=== PATIENT | female | born 1975 | race Caucasian/White ===

== ENCOUNTER 2017-11-04 10:35 | Emergency (ER) | payer OTHER, SELFPAY ==
[2017-11-04 10:42] VITALS: BP 130/71; PULSE 114; RESP 18; TEMP 37.3; O2SAT 98; BMI 24.5
--- NOTE | 2017-11-04 11:28 | HMH.EDGENADL ---
ED Disposition Clinical Impression: Influenza Disposition: Home, Self-Care Condition on Discharge: Fair Additional Instructions: 1- rest. 2- plenty of fluids. 3- alternate tylenol and motrin. 4- start tamiflu. 5- see pcp in am for a recheck. 6- return if needed for a recheck if not better. Prescriptions: Oseltamivir Phosphate [Tamiflu 75mg Capsule] 75 mg PO BID #10 cap Referrals: Angie Matt [Primary Care Provider] - - Critical Care Critical Care Time: No Attestation: On 11/04/17, the high probability of a clinically significant, sudden or life threatening deterioration of the following system(s) required my full and direct attention, intervention and personal management. The time I documented below is in addition to time spent performing reported procedures but includes the following listed in this critical care notation. Medical Decision Making - Medical Records Medical records reviewed: Yes: I reviewed the patient's medical records. Vital Signs: 11/04/17 10:42 Temperature 99.1 F Temperature Source Oral Pulse Rate [Right Brachial] 114 H Respiratory Rate 18 Blood Pressure [Right Arm] 130/71 Blood Pressure Mean [Right Arm] 90 Blood Pressure Source [Right Arm] Automatic Cuff Blood Pressure Position [Right Arm] Sitting 02 Sat by Pulse Oximetry 98 Oxygen Delivery Method Room Air - Lab Data Lab Results 11/04/17 10:40: Influenza Type A Ag Negative, Influenza Type B Ag Positive A Orders (Tests/Meds): ORDERS Category Date Time Status BNP [B-Type Natriuretic Peptide] Stat Lab 11/04/17 11:19 Ordered D-Dimer Stat Lab 11/04/17 11:19 Ordered - Narayan Inquiry Pt receiving controlled substance: No Narayan was queried for this patient: No Medical Decision Making Narrative: The patient refused her chest x-ray and she said I am not hurting I just want to be checked for the flu. She denied having dysuria or hematuria or flank pain. Urine analysis. Wanted to be checked for the flu. She tested flu B positive . General Adult HPI - General Chief complaint: Fever Stated complaint: achey,cough Mode of Arrival: Ambulatory Limitations: No Limitations Description of Symptoms (Recalled from ER Triage Doc. by RN): flu like symptoms - History of Present Illness HPI narrative: 42 years old white female with no past medical history non-smoker. She developed fever body aches for 2 days duration. She denies productive cough shortness of breath palpitations chest pain nausea vomiting. She denies having sore throat earache . she has three children and wants to be tested for the flu. Onset (ago): day(s) (2 days .) Radiation: non-radiation Severity: moderate Quality: aching, dull Consistency: constant Relieving factors: medication Exacerbating factors: none Associated symptoms: fever/chills, malaise Treatments prior to arrival: none - Related Data Previous Rx's Medication Instructions Recorded Oseltamivir Phosphate [Tamiflu 75 mg PO BID #10 cap 11/04/17 75mg Capsule] Allergies Allergy/AdvReac Type Severity Reaction Status Date / Time Naproxen Allergy Mild I-ITCHING Uncoded 09/21/17 15:40 SULFA (sulfonamide) Allergy Mild I-HIVES Uncoded 09/21/17 15:40 [facility] History I have reviewed the patient's past medical history: Yes - *Social History Educational Level: Completed High School Smoking Status: Unknown if ever smoked Alcohol Intake: never - Psychiatric History Expresses thoughts of harming self/others: None Suicide Plan Description: No Plan ROS Obtained: Yes All systems reviewed & no additional complaints Physical Exam - General General appearance: alert, in no apparent distress - Head Head exam: atraumatic, normocephalic, normal inspection - Eye Eye exam: Present: normal appearance, PERRL, EOMI - ENT ENT exam: Present: normal exam, normal oropharynx, mucous membranes moist, TM's normal bilaterally, normal external ear exam -
--- NOTE | 2017-11-04 11:31 | ED_ITS ---
ED Disposition Clinical Impression: Influenza Disposition: Home, Self-Care Condition on Discharge: Fair Additional Instructions: 1- rest. 2- plenty of fluids. 3- alternate tylenol and motrin. 4- start tamiflu. 5- see pcp in am for a recheck. 6- return if needed for a recheck if not better. Prescriptions: Oseltamivir Phosphate [Tamiflu 75mg Capsule] 75 mg PO BID #10 cap Referrals: Angie Matt [Primary Care Provider] - - Critical Care Critical Care Time: No Attestation: On 11/04/17, the high probability of a clinically significant, sudden or life threatening deterioration of the following system(s) required my full and direct attention, intervention and personal management. The time I documented below is in addition to time spent performing reported procedures but includes the following listed in this critical care notation. Medical Decision Making - Medical Records Medical records reviewed: Yes: I reviewed the patient's medical records. Vital Signs: 11/04/17 10:42 Temperature 99.1 F Temperature Source Oral Pulse Rate [Right Brachial] 114 H Respiratory Rate 18 Blood Pressure [Right Arm] 130/71 Blood Pressure Mean [Right Arm] 90 Blood Pressure Source [Right Arm] Automatic Cuff Blood Pressure Position [Right Arm] Sitting 02 Sat by Pulse Oximetry 98 Oxygen Delivery Method Room Air - Lab Data Lab Results 11/04/17 10:40: Influenza Type A Ag Negative, Influenza Type B Ag Positive A Orders (Tests/Meds): ORDERS Category Date Time Status BNP [B-Type Natriuretic Peptide] Stat Lab 11/04/17 11:19 Ordered D-Dimer Stat Lab 11/04/17 11:19 Ordered - Narayan Inquiry Pt receiving controlled substance: No Narayan was queried for this patient: No Medical Decision Making Narrative: The patient refused her chest x-ray and she said I am not hurting I just want to be checked for the flu. She denied having dysuria or hematuria or flank pain. Urine analysis. Wanted to be checked for the flu. She tested flu B positive . General Adult HPI - General Chief complaint: Fever Stated complaint: achey,cough Mode of Arrival: Ambulatory Limitations: No Limitations Description of Symptoms (Recalled from ER Triage Doc. by RN): flu like symptoms - History of Present Illness HPI narrative: 42 years old white female with no past medical history non-smoker. She developed fever body aches for 2 days duration. She denies productive cough shortness of breath palpitations chest pain nausea vomiting. She denies having sore throat earache . she has three children and wants to be tested for the flu. Onset (ago): day(s) (2 days .) Radiation: non-radiation Severity: moderate Quality: aching, dull Consistency: constant Relieving factors: medication Exacerbating factors: none Associated symptoms: fever/chills, malaise Treatments prior to arrival: none - Related Data Previous Rx's Medication Instructions Recorded Oseltamivir Phosphate [Tamiflu 75 mg PO BID #10 cap 11/04/17 75mg Capsule] Allergies Allergy/AdvReac Type Severity Reaction Status Date / Time Naproxen Allergy Mild I-ITCHING Uncoded 09/21/17 15:40 SULFA (sulfonamide) Allergy Mild I-HIVES Uncoded 09/21/17 15:40 H History
[2017-11-04 11:53] VITALS: BP 119/64; PULSE 92; RESP 20; TEMP 36.6
--- NOTE | 2017-11-04 11:55 | PC.NURSE ---
PT REFUSED HER CHEST XRAY
== END 2017-11-04 11:53 | disposition home or self-care (01) ==
PROVIDERS: Emergency Provider Emergency Medicine; Family Provider Family Medicine; PCP Family Medicine
DX: J11.1 Influenza due to unidentified influenza virus with other respiratory manifestations (principal)
CPT/HCPCS: 87275; 87276; 99203; 99281

== ENCOUNTER 2017-11-05 12:26 | Emergency (ER) | payer OTHER, SELFPAY ==
[2017-11-05 12:44] VITALS: BP 113/68; PULSE 107; RESP 18; O2SAT 98; BMI 24.5
--- NOTE | 2017-11-05 12:53 | XR_ITS ---
XR chest 2V HISTORY: ITS.REASON: COUGH ORDERING PHYSICIAN: Luis Antonio Wharton MD PATIENT AGE: 42 years COMPARISON: None available FINDINGS: The cardiomediastinal silhouette and pulmonary vascularity are within normal limits. The lungs are clear without infiltrates, suspicious nodules, or pleural effusions. There is calcified granuloma in the right upper lobe. There is hyperinflation with blunting of the CP angles probably related to diaphragmatic eventration as opposed to pleural effusion. No acute bony abnormalities. IMPRESSION: Hyperinflation suggesting small airway disease such as asthma, bronchitis, or COPD
--- NOTE | 2017-11-05 13:16 | HMH.EDGENADL ---
ED Disposition Clinical Impression: Influenza B Disposition: Home, Self-Care Condition on Discharge: Good Instructions: DI for Influenza -- Adult, DI for Diarrhea and Traveler's Diarrhea -- Adult Additional Instructions: Continue current treatment. [id number] Imodium as needed for diarrhea. Drink plenty of fluids. Referrals: Angie Matt [Primary Care Provider] - - Critical Care Critical Care Time: No Attestation: On 11/05/17, the high probability of a clinically significant, sudden or life threatening deterioration of the following system(s) required my full and direct attention, intervention and personal management. The time I documented below is in addition to time spent performing reported procedures but includes the following listed in this critical care notation. Medical Decision Making Vital Signs: 11/05/17 12:44 Temperature Source Oral Pulse Rate [Right Brachial] 107 H Respiratory Rate 18 Blood Pressure [Right Arm] 113/68 Blood Pressure Mean [Right Arm] 83 Blood Pressure Source [Right Arm] Automatic Cuff Blood Pressure Position [Right Arm] Sitting 02 Sat by Pulse Oximetry 98 Oxygen Delivery Method Room Air Orders (Tests/Meds): ORDERS Category Date Time Status Chest XR 2 view (NOT portable) [XR chest 2V] Stat Exams 11/05/17 12:53 Taken - Radiology Data #1 Image(s): Chest Chest x-ray interpreted by Luis Antonio Wharton M.D. No infiltrate, pneumothorax, pleural effusion, or wide mediastinum. - Narayan Inquiry Pt receiving controlled substance: No General Adult HPI - General Chief complaint: PAIN Stated complaint: flu like symptoms cough Mode of Arrival: Ambulatory Limitations: No Limitations Description of Symptoms (Recalled from ER Triage Doc. by RN): DIAGNOSED WITH FLU YESTERDAY; PT STATES WAS TOLD TO COME BACK IF NO BETTER;PT REFUSED CHEST XRAY YESTERDAY. STARTED ON TAMIFLU. STATES HAS DIARRHEA. DISCUSSED SIDE EFFECTS OF TAMIFLU - History of Present Illness HPI narrative: The patient has been sick since Wednesday 5 days ago with flulike symptoms. She was seen here yesterday in the emergency room and had a positive test for influenza B. She was started on Tamiflu. She says she also now has diarrhea. She has a cough and rhinorrhea. She has a blister on her throat. Chest x-ray was ordered yesterday, but she declined, and has decided today that she wants a chest x-ray. - Related Data Previous Rx's Medication Instructions Recorded Oseltamivir Phosphate [Tamiflu 75 mg PO BID #10 cap 11/04/17 75mg Capsule] Allergies Allergy/AdvReac Type Severity Reaction Status Date / Time Naproxen Allergy Mild I-ITCHING Uncoded 09/21/17 15:40 SULFA (sulfonamide) Allergy Mild I-HIVES Uncoded 09/21/17 15:40 [facility] History I have reviewed the patient's past medical history: Yes - *Social History Educational Level: Completed High School Smoking Status: Unknown if ever smoked Alcohol Intake: never - Psychiatric History Expresses thoughts of harming self/others: None Suicide Plan Description: No Plan ROS Obtained: Yes All systems reviewed & no additional complaints - Constitutional Constitutional: Reports fever(s) - ENT Ears, Nose, Mouth, and Throat: Reports as per HPI, Reports mouth lesions, Reports nasal discharge, Reports sore throat - Respiratory Respiratory: Yes cough Physical Exam - General General appearance: alert, in no apparent distress - Head Head exam: atraumatic, normocephalic, normal inspection - Eye Eye exam: Present: normal appearance, PERRL, EOMI - ENT ENT exam: Present: normal exam, mucous membranes moist, TM's normal bilaterally, normal external ear exam, other (Small ulcers on palate X 2) - Neck Neck exam: Present: normal inspection, full ROM, trachea midline. Absent: meningismus, lymphadenopathy - Chest Chest inspection: Present: normal inspection, symmetric chest wall rise. Absent: tenderness - Respiratory Respirato
[2017-11-05 13:49] VITALS: BP 113/66; PULSE 104; RESP 18; TEMP 37.1; O2SAT 100
== END 2017-11-05 13:51 | disposition home or self-care (01) ==
LOC: UTC 12:33 → ER 12:43
PROVIDERS: Emergency Provider Emergency Medicine; Family Provider Family Medicine; PCP Family Medicine
DX: J11.1 Influenza due to unidentified influenza virus with other respiratory manifestations (principal)
CPT/HCPCS: 71046; 99281

== ENCOUNTER 2020-11-02 19:41 | Emergency (ER) | payer OTHER, SELFPAY ==
[2020-11-02 19:56] VITALS: BP 124/73; PULSE 90; RESP 16; TEMP 36.7; O2SAT 98; BMI 24.5
[2020-11-02 20:19] LABS: Basophils # 0.1 K/mm3 (0-0.2); Basophils % 0.8 % (0.1-2.0); Eosinophils # 0.3 K/mm3 (0.0-0.4); Eosinophils % 4.7 % (0.1-12.0); Hematocrit 43.4 % (37.0-47.0); Hemoglobin 13.9 g/dL (12.2-16.2); Lymphocytes # 2.7 K/mm3 (0.7-4.5); Lymphocytes % 40.9 % (10-50); Mean Corpuscular Hemoglobin 28.6 pg (27.0-31.2); Mean Corpuscular Volume 89.3 fl (81-99); Mean Platelet Volume 7.5 fl (7.4-10.4); Monocytes # 0.3 K/mm3 (0.1-1.0); Monocytes % 4.6 % (1.7-9.3); Neutrophils # 3.3 K/mm3 (1.8-7.8); Platelet Count 344 K/mm3 (142-424); Red Blood Count 4.86 M/mm3 (4.20-5.40); Red Cell Distribution Width 14.2 % (11.5-17.5); White Blood Count 6.7 K/mm3 (4.8-10.8)
[2020-11-02 20:23] LABS: Alanine Aminotransferase 33 U/L (12-78); Albumin Level 4.5 g/dl (3.5-5.0); Albumin/Globulin Ratio 1.4 (1.1-1.8); Alkaline Phosphatase 78 U/L (38-126); Aspartate Amino Transferase 33 U/L (14-36); Bilirubin,Total 0.2 mg/dl (0.2-1.3); Blood Urea Nitrogen 12 mg/dl (7-17); Carbon Dioxide 28 mmol/L (22.0-30.0); Chloride 101 mmol/L (98-107); Creatinine Clearance Estimated 81 mL/min (50-200); Estimated Glomerular Filt Rate 77 ml/min (>60); GFR (African American) 93 ML/MIN (>60); Globulin 3.3 g/dL (1.3-3.2); Glucose 96 mg/dl (74-100); Lactic Acid 1.2 mmol/L (0.7-2.1); Sodium 139 mmol/L (136-145); Total Protein,Serum 7.8 g/dl (6.3-8.2)
[2020-11-02 20:50] LABS: Erythrocyte Sedimentation Rate 13 mm/hr (0-20); Procalcitonin < 0.030 ng/mL (0.0-2.0)
--- NOTE | 2020-11-02 20:54 | HMH.EDSKAF ---
ED Disposition Clinical Impression: Arthralgia Qualifiers: Joint pain location: hand Laterality: right Qualified Code(s): M25.541 - Pain in joints of right hand Disposition: Home, Self-Care Condition on Discharge: Good Instructions: DI for Arthralgia Additional Instructions: use meds and see pcp for follow up Referrals: Angie Matt [Primary Care Provider] - - Critical Care Critical Care Time: No Attestation: On 11/02/20, the high probability of a clinically significant, sudden or life threatening deterioration of the following system(s) required my full and direct attention, intervention and personal management. The time I documented below is in addition to time spent performing reported procedures but includes the following listed in this critical care notation. Medical Decision Making - Medical Records Medical records reviewed: Yes: I reviewed the patient's medical records. - Narayan Inquiry Pt receiving controlled substance: No Vital Signs: 11/02/20 19:56 Temperature 98.0 F Temperature Source Oral Pulse Rate [Left] 90 Respiratory Rate 16 Blood Pressure [Right Arm] 124/73 Blood Pressure Mean [Right Arm] 90 Blood Pressure Source [Right Arm] Automatic Cuff Blood Pressure Position [Right Arm] Supine 02 Sat by Pulse Oximetry 98 Oxygen Delivery Method Room Air - Lab Data Lab results reviewed: Yes: I reviewed the patient's lab results. Lab Results 11/02/20 20:06: WBC 6.7, RBC 4.86, Hgb 13.9, Hct 43.4, MCV 89.3, MCH 28.6, MCHC 32.0, RDW 14.2, Plt Count 344, MPV 7.5, Neut % (Auto) 49.0, Lymph % (Auto) 40.9, [place] % (Auto) 4.6, Eos % (Auto) 4.7, Baso % (Auto) 0.8, Neut # (Auto) 3.3, Lymph # (Auto) 2.7, [place] # (Auto) 0.3, Eos # (Auto) 0.3, Baso # (Auto) 0.1, ESR 13 11/02/20 20:06: Sodium 139, Potassium 4.0, Chloride 101, Carbon Dioxide 28, Anion Gap 14.0, BUN 12, Creatinine 0.80, Estimated Creat Clear 81, Estimated GFR 77, Est GFR ( Amer) 93, Glucose 96, Calcium 9.0, Total Bilirubin 0.2, AST 33, ALT 33, Alkaline Phosphatase 78, C-Reactive Protein 1.0, Total Protein 7.8, Albumin 4.5, Globulin 3.3 H, Albumin/Globulin Ratio 1.4, Procalcitonin < 0.030 11/02/20 20:06: Lactate 1.2 11/02/20 20:06: ESR 13 11/02/20 20:06: Uric Acid 4.0 Result diagrams: 11/02/20 20:06 11/02/20 20:06 Orders (Tests/Meds): ED MEDICATIONS Generic Name Dose Route Start Last Admin Trade Name Freq PRN Reason Stop Dose Admin Sodium Chloride 1,000 mls @ 999 mls/hr 11/02/20 20:15 11/02/20 20:59 Sod Chlor 0.9% 1000ml Bag IV 11/02/20 21:15 Not Given .Q1H1M MYA Discontinued Medications Generic Name Dose Route Start Last Admin Trade Name Freq PRN Reason Stop Dose Admin Ketorolac Tromethamine 30 mg 11/02/20 20:09 11/02/20 20:59 Ketorolac 30mg/Ml Vial IV 11/02/20 20:10 Not Given ONCE ONE Methylprednisolone Sodium Succinate 125 mg 11/02/20 20:09 11/02/20 20:59 Methylprednisolone Sod Succ 125mg Vial IV 11/02/20 20:10 Not Given ONCE ONE ORDERS Category Date Time Status Antinuclear Antibodies, IFA Routine Lab 11/02/20 20:06 Received Covid-19 IgG/IgM ([facility]) Stat Lab 11/02/20 20:06 Received HCG Qualitative, Serum Stat Lab 11/02/20 20:06 Received RA Latex Turbid. Routine Lab 11/02/20 20:06 Received Medical Decision Narrative: does not want meds Skin/Abscess/FB HPI - General Chief complaint: Extremity Problem,Nontraumatic Stated complaint: Pain in r Hand and,l Foot,blister on foot Time Seen by Provider: 11/02/20 20:05 Mode of Arrival: Ambulatory Source of Information: Patient, Medical Record Limitations: No Limitations Description of Symptoms (Recalled from ER Triage Doc. by RN): Pt states she started having swelling to her fingers on the right hand and blisters to her toes on her left foot. Pt has full ROM and skin intact. - History of Present Illness HPI narrative: tenderness to lt toes and rt hand with pain and swelling rt hand at pip jts - no other jts and no hx
[2020-11-02 21:14] LABS: Erythrocyte Sedimentation Rate 13 mm/hr (0-20)
[2020-11-02 21:30] LABS: HCG Qualitative, Serum Negative (Negative)
[2020-11-02 21:34] LABS: Coronavirus 19 IgG Antibody Negative (Negative); Coronavirus 19 IgM Antibody Negative (Negative)
[2020-11-02 21:38] VITALS: BP 127/73; PULSE 73; RESP 15; TEMP 36.7; O2SAT 98
[2020-11-05 11:23] LABS: RA Latex Turbid. 12.2 IU/mL (0.0-13.9)
[2020-11-07 10:15] LABS: Antinuclear Antibodies, IFA Positive (.)
== END 2020-11-02 21:40 | disposition home or self-care (01) ==
PROVIDERS: Emergency Medicine; Emergency Provider Emergency Medicine; PCP Family Medicine
DX: S90.822A Blister (nonthermal), left foot, initial encounter; Z01.84 Encounter for antibody response examination; Z87.891 Personal history of nicotine dependence; Z88.1 Allergy status to other antibiotic agents; Z88.5 Allergy status to narcotic agent
CPT/HCPCS: 80053; 83605; 84145; 84550; 84703; 85025; 85651; 86038; 86140; 86328; 86431; 99282

== ENCOUNTER 2020-11-23 19:54 | Observation (INO) | payer OTHER, SELFPAY ==
[2020-11-23] VITALS (8 sets, daily range): BP systolic 86–127; BP diastolic 53–74; PULSE 84–116; RESP 15–19; O2SAT 99–100; BMI 24.5
--- NOTE | 2020-11-23 20:20 | ECG_ITS ---
APPROVED REPORT Exam: Resting ECG HR:107 bpm ECG Measurements Heart Rate 107 AXES OH 134 P 79 QRSd 72 QRS 81 QT 358 T 53 QTc 477 Conclusion Sinus tachycardia Nonspecific ST abnormality Abnormal ECG Electronically signed by : Shayan Cota, 11/24/2020 07:57:21
--- NOTE | 2020-11-23 20:24 | HMH.EDUROGF ---
ED Disposition Clinical Impression: DUB (dysfunctional uterine bleeding), Acute blood loss anemia (ABLA) Uterine fibroid Qualifiers: Uterine leiomyoma location: unspecified location Qualified Code(s): D25.9 - Leiomyoma of uterus, unspecified Anemia Qualifiers: Anemia type: unspecified type Qualified Code(s): D64.9 - Anemia, unspecified Disposition: Admitted as Observation Condition on Discharge: Good Referrals: Angie Matt [Primary Care Provider] - - Critical Care Critical Care Time: No Attestation: On 11/23/20, the high probability of a clinically significant, sudden or life threatening deterioration of the following system(s) required my full and direct attention, intervention and personal management. The time I documented below is in addition to time spent performing reported procedures but includes the following listed in this critical care notation. Medical Decision Making - Medical Records Medical records reviewed: Yes: I reviewed the patient's medical records. - Narayan Inquiry Pt receiving controlled substance: No Vital Signs: 11/23/20 19:56 11/23/20 20:15 11/23/20 20:30 Pulse Rate [Orthostatic Lying Right Radial] 116 H Pulse Rate [Orthostatic Sitting Right Radial] 114 H Pulse Rate [Orthostatic Standing Right Radial] 84 Pulse Rate [Right] 114 H 87 Respiratory Rate 18 17 Blood Pressure [Orthostatic Lying Right Arm] 112/70 Blood Pressure [Orthostatic Sitting Right Arm] 112/72 Blood Pressure [Orthostatic Standing Right Arm] 86/53 L Blood Pressure [Right Arm] 112/72 103/68 L Blood Pressure Mean [Right Arm] 85 79 Blood Pressure Source [Right Arm] Automatic Cuff Blood Pressure Position [Right Arm] Supine 02 Sat by Pulse Oximetry 100 99 Oxygen Delivery Method Room Air 11/23/20 21:00 11/23/20 21:30 Pulse Rate [Orthostatic Lying Right Radial] Pulse Rate [Orthostatic Sitting Right Radial] Pulse Rate [Orthostatic Standing Right Radial] Pulse Rate [Right] 114 H 97 H Respiratory Rate 19 15 Blood Pressure [Orthostatic Lying Right Arm] Blood Pressure [Orthostatic Sitting Right Arm] Blood Pressure [Orthostatic Standing Right Arm] Blood Pressure [Right Arm] 124/74 109/67 L Blood Pressure Mean [Right Arm] 90 81 Blood Pressure Source [Right Arm] Automatic Cuff Automatic Cuff Blood Pressure Position [Right Arm] Supine Supine 02 Sat by Pulse Oximetry 100 100 Oxygen Delivery Method Room Air Room Air - Lab Data Lab results reviewed: Yes: I reviewed the patient's lab results. Lab Results 11/23/20 20:10: WBC 6.5, RBC 2.42 L, Hgb 6.9 L*, Hct 21.8 L*, MCV 90.1, MCH 28.4, MCHC 31.5 L, RDW 13.9, Plt Count 404, MPV 8.5, Neut % (Auto) 59.2, Lymph % (Auto) 32.8, [place] % (Auto) 5.3, Eos % (Auto) 2.3, Baso % (Auto) 0.4, Neut # (Auto) 3.8, Lymph # (Auto) 2.1, [place] # (Auto) 0.3, Eos # (Auto) 0.2, Baso # (Auto) 0.0, ESR 57 H 11/23/20 20:10: Sodium 137, Potassium 3.4 L, Chloride 106, Carbon Dioxide 24, Anion Gap 10.4, BUN 9, Creatinine 0.60, Estimated Creat Clear 108, Estimated GFR 107, Est GFR ( Amer) 130, Glucose 114 H, Calcium 8.8, Total Bilirubin 0.3, AST 53 H, ALT 23, Alkaline Phosphatase 53, C-Reactive Protein 1.4, Total Protein 6.7, Albumin 3.8, Globulin 2.9, Albumin/Globulin Ratio 1.3, Procalcitonin < 0.030 11/23/20 20:10: Serum HCG, Qual Negative 11/23/20 20:50: Blood Type O Positive, Antibody Screen Negative, Crossmatch (AHG) See Detail 11/23/20 20:52: Blood Type Confirm O Positive 11/23/20 22:25: Urine Color Yellow, Urine Appearance Clear, Urine pH 6.0, Ur Specific [place] 1.020, Urine Protein Negative, Urine Glucose (UA) Negative, Urine Ketones 1+, Urine Blood 3+, Urine Nitrate Negative, Urine Bilirubin Negative, Urine Urobilinogen 0.2, Ur Leukocyte Esterase Negative Result diagrams: 11/23/20 20:10 11/23/20 20:10 Orders (Tests/Meds): ED MEDICATIONS Generic Name Dose Route Start Last Admin Trade Name Freq PRN Reason Stop Dose Admin Sodium Chloride 1,000 mls @
[2020-11-23 20:27] LABS: Basophils % 0.4 % (0.1-2.0); Eosinophils # 0.2 K/mm3 (0.0-0.4); Eosinophils % 2.3 % (0.1-12.0); Lymphocytes # 2.1 K/mm3 (0.7-4.5); Lymphocytes % 32.8 % (10-50); Mean Corpuscular HGB Conc 31.5 g/dL (31.8-35.4); Mean Corpuscular Hemoglobin 28.4 pg (27.0-31.2); Mean Corpuscular Volume 90.1 fl (81-99); Mean Platelet Volume 8.5 fl (7.4-10.4); Monocytes # 0.3 K/mm3 (0.1-1.0); Monocytes % 5.3 % (1.7-9.3); Neutrophils # 3.8 K/mm3 (1.8-7.8); Neutrophils % 59.2 % (37.0-80.0); Platelet Count 404 K/mm3 (142-424); Red Blood Count 2.42 M/mm3 (4.20-5.40); Red Cell Distribution Width 13.9 % (11.5-17.5); White Blood Count 6.5 K/mm3 (4.8-10.8)
[2020-11-23 20:28] LABS: Hemoglobin 6.9 g/dL (12.2-16.2)
[2020-11-23 20:29] LABS: Chloride 106 mmol/L (98-107); Hematocrit 21.8 % (37.0-47.0); Potassium 3.4 mmoL/L (3.5-5.1); Sodium 137 mmol/L (136-145)
[2020-11-23 20:32] LABS: Alanine Aminotransferase 23 U/L (12-78); Albumin Level 3.8 g/dl (3.5-5.0); Albumin/Globulin Ratio 1.3 (1.1-1.8); Alkaline Phosphatase 53 U/L (38-126); Anion Gap 10.4 mEq/L (5-15); Aspartate Amino Transferase 53 U/L (14-36); Bilirubin,Total 0.3 mg/dl (0.2-1.3); Blood Urea Nitrogen 9 mg/dl (7-17); Calcium 8.8 mg/dl (8.4-10.2); Carbon Dioxide 24 mmol/L (22.0-30.0); Creatinine Clearance Estimated 108 mL/min (50-200); Estimated Glomerular Filt Rate 107 ml/min (>60); GFR (African American) 130 ML/MIN (>60); Globulin 2.9 g/dL (1.3-3.2); Glucose 114 mg/dl (74-100); Total Protein,Serum 6.7 g/dl (6.3-8.2)
--- NOTE | 2020-11-23 20:36 | US_ITS ---
PROCEDURE: US TRANSVAGINAL CLINICAL INDICATION: bleeding with acute anemia COMPARISON: No exams were available for comparison FINDINGS: The uterus is upper limits of normal in size. The myometrium appears grossly normal except for a oval somewhat hypoechoic mass posterior wall of the uterus measuring 3.1 x 2.3 by 3.2 cm with homogeneous echogenicity and appearing typical of a fibroid. The endometrium is mildly thickened. The right ovary is normal. There is a dominant cyst arising from left ovary measuring 2.6 x 2.0 by 3.1 cm. There is normal blood flow to both ovaries. There is no cul-de-sac fluid. IMPRESSION: Probable fibroid posterior wall mid uterus, small to moderate size left ovarian cyst Dictated by: Dr. Manjit Pal MD 11/24/2020 08:02 Dr. Manjit Pal MD in [facility] 11/24/2020 08:02
--- NOTE | 2020-11-23 20:36 | PC.NURSE ---
called radiology for ultrasound.
[2020-11-23 20:38] LABS: C-Reactive Protein 1.4 mg/L (0-4)
--- NOTE | 2020-11-23 20:38 | PC.NURSE ---
called lab for type and cross
[2020-11-23 20:55] LABS: Erythrocyte Sedimentation Rate 57 mm/hr (0-20)
[2020-11-23 20:56] LABS: Procalcitonin < 0.030 ng/mL (0.0-2.0)
[2020-11-23 21:21] LABS: HCG Qualitative, Serum Negative (Negative)
[2020-11-23 22:30] LABS: Microscopic, Urine URINE MICROSCOPIC (MICROSCOPIC)
[2020-11-23 22:32] LABS: Appearance,Urine CLEAR (Clear); Bilirubin,Urine Negative (Negative); Blood, Urine 3+ (Negative); Color,Urine YELLOW (Yellow); Glucose,Urine (UA) Negative (Negative); Ketones,Urine 1+ (Negative); Leukocyte Esterase,Urine Negative (Negative); Nitrate,Urine Negative (Negative); Protein,Urine Negative (Negative); Urobilinogen,Urine 0.2 EU/dl (0.2)
[2020-11-23 22:35] LABS: Amorphous Sediment,Urine Trace /lpf; Mucus,Urine Trace /lpf; RBC,Urine 20-50 #/hpf (0-3)
--- NOTE | 2020-11-23 22:53 | PC.NURSE ---
Dr mcgowan stated that blood transfusion could be started once pt was admitted to floor
[2020-11-24] VITALS (28 sets, daily range): BP systolic 100–138; BP diastolic 50–78; PULSE 71–107; RESP 14–106; TEMP 36.6–37.1; O2SAT 98–100
--- NOTE | 2020-11-24 00:31 | PC.NURSE ---
Pt arrived to unit via wc from ER with YASH Peralta. Report received at this time.
--- NOTE | 2020-11-24 00:40 | PC.NURSE ---
First unit PRBCs started at this time. Pt understands the risks / benefits of receiving blood as well as side effects. Transfusion consent also signed at this time.
--- NOTE | 2020-11-24 00:40 | PC.NURSE ---
Starting transfusion of 1st unit PRBCs. Infusion started at 250ml/hr.. Pt denies any questions or concerns at this time.
--- NOTE | 2020-11-24 03:40 | PC.NURSE ---
First unit of blood, [id number], ended at 0340 and had a total of 415mls of blood in it. All infused. No complications. (unable to officially end this unit in [employer]).
--- NOTE | 2020-11-24 04:25 | PC.NURSE ---
Tolerated 1st PRBC infusion well. C/O slight headache, refuses anything. resting well.
--- NOTE | 2020-11-24 07:07 | PC.NURSE ---
2nd Unit complete @ 0635. 332ml total infused
--- NOTE | 2020-11-24 07:36 | PC.NURSE ---
lab at bedside.
[2020-11-24 08:07] LABS: Hemoglobin 10.2 g/dL (12.2-16.2)
--- NOTE | 2020-11-24 08:35 | PC.NURSE ---
dr. gonzales here rounding on patient- orders for 2 view chest x-ray, cbc at [address] gonzales wants to keep patient and let dr. jamison see her tonight. r/v all orders.
--- NOTE | 2020-11-24 09:03 | HMH.ACPN2 ---
Internal Medicine - PN: Subj *Date: 11/24/20 *Time: 09:03 Exam Vital signs and Labs for Last 24 Hours: Temp Pulse Resp BP Pulse Ox 98.2 F 74 20 117/64 100 11/24/20 08:00 11/24/20 08:00 11/24/20 08:00 11/24/20 08:00 11/24/20 08:00 Laboratory Results - last 24 hr 11/23/20 20:10: WBC 6.5, RBC 2.42 L, Hgb 6.9 L*, Hct 21.8 L*, MCV 90.1, MCH 28.4, MCHC 31.5 L, RDW 13.9, Plt Count 404, MPV 8.5, Neut % (Auto) 59.2, Lymph % (Auto) 32.8, [place] % (Auto) 5.3, Eos % (Auto) 2.3, Baso % (Auto) 0.4, Neut # (Auto) 3.8, Lymph # (Auto) 2.1, [place] # (Auto) 0.3, Eos # (Auto) 0.2, Baso # (Auto) 0.0, ESR 57 H 11/23/20 20:10: Sodium 137, Potassium 3.4 L, Chloride 106, Carbon Dioxide 24, Anion Gap 10.4, BUN 9, Creatinine 0.60, Estimated Creat Clear 108, Estimated GFR 107, Est GFR ( Amer) 130, Glucose 114 H, Calcium 8.8, Total Bilirubin 0.3, AST 53 H, ALT 23, Alkaline Phosphatase 53, C-Reactive Protein 1.4, Total Protein 6.7, Albumin 3.8, Globulin 2.9, Albumin/Globulin Ratio 1.3, Procalcitonin < 0.030 11/23/20 20:10: Serum HCG, Qual Negative 11/23/20 20:50: Blood Type O Positive, Antibody Screen Negative, Crossmatch (AHG) See Detail 11/23/20 20:52: Blood Type Confirm O Positive 11/23/20 22:25: Urine Color Yellow, Urine Appearance Clear, Urine pH 6.0, Ur Specific [place] 1.020, Urine Protein Negative, Urine Glucose (UA) Negative, Urine Ketones 1+, Urine Blood 3+, Urine Nitrate Negative, Urine Bilirubin Negative, Urine Urobilinogen 0.2, Ur Leukocyte Esterase Negative, Urine RBC 20-50, Ur Squamous Epith Cells 5-10, Amorphous Sediment Trace, Urine Mucus Trace 11/24/20 07:45: Hgb 10.2 L D, Hct 31.0 L I & O for Last 24 hours: Intake & Output 11/21/20 11/22/20 11/23/20 11/24/20 11:59 11:59 11:59 11:59 Intake Total 1996 Balance 1996 Weight 130 lb Microbiology Reports for the Last 24 Hours: Microbiology 11/23/20 20:32 Nasopharyngeal Coronavirus COVID-19 PCR - Final
--- NOTE | 2020-11-24 09:09 | HMH.ACPN2 ---
Internal Medicine - PN: Subj *Date: 11/24/20 *Time: 09:09 (Please refer to the emergency room notes for current H&P. This 45-year-old white female was admitted to the emergency room yesterday with heavy vaginal bleeding and a hemoglobin of 6.9 g, with orthostatic signs. test was negative. Initially, she refused admission. However, she became dizzy on standing and agreed to be admitted and transfused. Since that time she has been transfused 2 units of packed cells and her current hemoglobin is 10.6 g. She feels much better. An ultrasound revealed a uterine leiomyoma and probable adenomyosis, most likely the cause of her bleeding. She states that she has a history of pulmonary granulomatosis, for which she is seeing a insurance claims processor and was scheduled for a follow-up chest x-ray and possible chest CT scan last week. This was not done because of weather concerns. Her physical examination is unremarkable. Plan is to observe her today and repeat her CBC later this afternoon. Chest x-ray has also been ordered. She has an appointment with Dr. Delgado in 2 days, but he will see her on this admission. ) Exam Vital signs and Labs for Last 24 Hours: Temp Pulse Resp BP Pulse Ox 98.2 F 74 20 117/64 100 11/24/20 08:00 11/24/20 08:00 11/24/20 08:00 11/24/20 08:00 11/24/20 08:00 Laboratory Results - last 24 hr 11/23/20 20:10: WBC 6.5, RBC 2.42 L, Hgb 6.9 L*, Hct 21.8 L*, MCV 90.1, MCH 28.4, MCHC 31.5 L, RDW 13.9, Plt Count 404, MPV 8.5, Neut % (Auto) 59.2, Lymph % (Auto) 32.8, [place] % (Auto) 5.3, Eos % (Auto) 2.3, Baso % (Auto) 0.4, Neut # (Auto) 3.8, Lymph # (Auto) 2.1, [place] # (Auto) 0.3, Eos # (Auto) 0.2, Baso # (Auto) 0.0, ESR 57 H 11/23/20 20:10: Sodium 137, Potassium 3.4 L, Chloride 106, Carbon Dioxide 24, Anion Gap 10.4, BUN 9, Creatinine 0.60, Estimated Creat Clear 108, Estimated GFR 107, Est GFR ( Amer) 130, Glucose 114 H, Calcium 8.8, Total Bilirubin 0.3, AST 53 H, ALT 23, Alkaline Phosphatase 53, C-Reactive Protein 1.4, Total Protein 6.7, Albumin 3.8, Globulin 2.9, Albumin/Globulin Ratio 1.3, Procalcitonin < 0.030 11/23/20 20:10: Serum HCG, Qual Negative 11/23/20 20:50: Blood Type O Positive, Antibody Screen Negative, Crossmatch (AHG) See Detail 11/23/20 20:52: Blood Type Confirm O Positive 11/23/20 22:25: Urine Color Yellow, Urine Appearance Clear, Urine pH 6.0, Ur Specific [place] 1.020, Urine Protein Negative, Urine Glucose (UA) Negative, Urine Ketones 1+, Urine Blood 3+, Urine Nitrate Negative, Urine Bilirubin Negative, Urine Urobilinogen 0.2, Ur Leukocyte Esterase Negative, Urine RBC 20-50, Ur Squamous Epith Cells 5-10, Amorphous Sediment Trace, Urine Mucus Trace 11/24/20 07:45: Hgb 10.2 L D, Hct 31.0 L I & O for Last 24 hours: Intake & Output 11/21/20 11/22/20 11/23/20 11/24/20 11:59 11:59 11:59 11:59 Intake Total 1996 Balance 1996 Weight 130 lb Microbiology Reports for the Last 24 Hours: Microbiology 11/23/20 20:32 Nasopharyngeal Coronavirus COVID-19 PCR - Final
--- NOTE | 2020-11-24 12:14 | XR_ITS ---
PROCEDURE: XR CHEST 2V CLINICAL HISTORY: history of lung disease COMPARISON: CR CXR2V XR chest 2V from 11/05/2017 FINDINGS: There is hyperexpansion of the lung walsh with depression and flattening of the hemidiaphragms. There is no pneumonic infiltrate seen and there is no definite pleural fluid. There is a small calcified granuloma right perihilar region. Cardiac size is normal and there is no pulmonary congestion. 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 Manjit Pal MD 11/24/2020 20:12 Dr. Manjit Pal MD in [facility] 11/24/2020 20:12
--- NOTE | 2020-11-24 12:39 | PC.NURSE ---
patient down for chest x ray
--- NOTE | 2020-11-24 12:47 | PC.NURSE ---
pt back from chest x ray
--- NOTE | 2020-11-24 13:27 | PC.NURSE ---
patient going to get into the shower. iv wrapped up.
--- NOTE | 2020-11-24 15:30 | PC.NURSE ---
NO CHANGES NOTED FROM PREVIOUS ASSESSMENT. PATIENT HAS DENIED ANY PAIN TODAY. LUNGS REMAINS CLEAR AND BOWELS HYPOACTIVE. PATIENT REPORTS NON PRODUCTIVE COUGH FROM ALLERGIES. IV INFUSING WITHOUT DIFFICULTY. PT HAS HAD A SHOWER TODAY AND HAS TOLERATED REGULAR DIET WELL. PULSES 2+ AND NO EDEMA NOTED. DENIES NUMBNESS AND TINGLING. PATIENT WEARING MASK IN ROOM PER PERSONAL CHOICE. PT REPORTS BRIGHT RED VAGINAL BLEEDING SMALL TO MODERATE IN AMOUNT AT TIMES. PATIENT REPORTS SHE IS PASSING DARK COLOR CLOTS TODAY. NO DIZZINESS/ SHORTNESS OF BREATH REPORTED. CALL LIGHT WITHIN REACH. NO NEEDS VOICED
--- NOTE | 2020-11-24 15:37 | P.CONPHA_ITS ---
[facility] Pharmacy VTE Monitoring - Patient Demographics Admission date: 11/24/20 Report Date: 11/24/20 Time: 15:37 Allergies/Adverse Reactions: Patient Allergies acetaminophen [From Lortab] Allergy (Verified 11/23/20 20:16) cefaclor [From Ceclor] Allergy (Verified 11/23/20 20:16) ceftriaxone [From Rocephin] Allergy (Verified 11/23/20 20:16) doxycycline Allergy (Verified 11/23/20 20:16) hydrocodone [From Lortab] Allergy (Verified 11/23/20 20:16) Naproxen Allergy (Mild, Uncoded 09/21/17 15:40) I-ITCHING SULFA (sulfonamide) Allergy (Mild, Uncoded 09/21/17 15:40) I-HIVES Height: 1.55 m Weight: 58.967 kg Patient Problems: Current Active Problems DUB (dysfunctional uterine bleeding) (Acute) Uterine fibroid (Acute) Anemia (Acute) Acute blood loss anemia (ABLA) (Acute) - VTE Risk Labs: VTE Related Lab Results Hgb 10.2 g/dL (12.2-16.2) L D 11/24/20 07:45 Hct 31.0 % (37.0-47.0) L 11/24/20 07:45 Plt Count 404 K/mm3 (142-424) 11/23/20 20:10 BUN 9 mg/dl (7-17) 11/23/20 20:10 Creatinine 0.60 mg/dl (0.52-1.04) 11/23/20 20:10 Estimated Creat Clear 108 mL/min (50-200) 11/23/20 20:10 Was VTE Risk Assessment Performed: Yes VTE Score: 1 VTE Risk Level: Very Low Risk - Prophylaxis VTE Prophylaxis Ordered?: Yes Types of VTE Prophylaxis: TEDS Knee High Location of Applied Device: Bilateral Lower Extremeties
--- NOTE | 2020-11-24 16:10 | PC.NURSE ---
LAB IN ROOM FOR CBC.
[2020-11-24 16:28] LABS: Basophils % 0.2 % (0.1-2.0); Eosinophils # 0.1 K/mm3 (0.0-0.4); Hematocrit 30.3 % (37.0-47.0); Hemoglobin 9.6 g/dL (12.2-16.2); Lymphocytes # 1.7 K/mm3 (0.7-4.5); Lymphocytes % 27.5 % (10-50); Mean Corpuscular HGB Conc 31.6 g/dL (31.8-35.4); Mean Corpuscular Hemoglobin 27.8 pg (27.0-31.2); Mean Corpuscular Volume 87.9 fl (81-99); Monocytes # 0.5 K/mm3 (0.1-1.0); Monocytes % 7.8 % (1.7-9.3); Neutrophils # 3.8 K/mm3 (1.8-7.8); Neutrophils % 62.4 % (37.0-80.0); Platelet Count 294 K/mm3 (142-424); Red Blood Count 3.45 M/mm3 (4.20-5.40); Red Cell Distribution Width 14.6 % (11.5-17.5); White Blood Count 6.1 K/mm3 (4.8-10.8)
--- NOTE | 2020-11-24 17:43 | PC.NURSE ---
patient ate all of her dinner. stating she has pain now in her left lower abdomen and leg. rates 01/11. will continue to monitor
--- NOTE | 2020-11-24 18:26 | PC.NURSE ---
spoke with dr. gonzales at this time. reported on patients labs and symptoms. states dr. jamison does know about patient. states for me to call him at shift change to see if he is going to round tonight. r/v
--- NOTE | 2020-11-24 18:49 | PC.NURSE ---
spoke with dr. jamison- he is going to round on patient in am. orders to keep regular diet and patient can have oxycodone 5mg prn every 4 hours for mild-mod pain. all orders r/v. REported on patients pain and h/h as well.
--- NOTE | 2020-11-24 19:20 | PC.NURSE ---
PT REFUSED OXYCODONE FOR PAIN, REQUESTS TYLENOL. MEDICAL RECORD STATES TYLENOL ALLERGY. PT CONFIRMS SHE CAN TAKE TYLENOL WITHOUT ANY ISSUES. DR. LIN NOTIFIED. ORDERS FOR TYLENOL 650 MG PO EVERY 4 HOURS NEEDED FOR MILD PAIN. R/V. ORDER FAXED TO PHARMACY
--- NOTE | 2020-11-25 04:05 | PC.NURSE ---
NO ACUTE CHANGES FROM PREVIOUS ASSESSMENT. PT HAS RESTED WELL ALL SHIFT, MEDICATED FOR PAIN X1, TYLENOL GIVEN PO. PT A& O X4. VITAL SIGNS STABLE. PT DENIES ANY SHORTNESS OF BREATH OR DIZZINESS. HEART RATE REGULAR. LUNGS CTAB. REPORTS OCCASIONAL COUGH, NO PRODUCTIVE. SKIN W/D/I. BOWEL SOUNDS ACTIVE X 4 QUADS. VOIDING WITHOUT DIFFICULTY. CONTINUES TO REPORT VAGINAL BLEEDING, SMALL TO MODERATE AT TIMES, OCCASIONAL CLOTS. PT REFUSED IV FLUIDS, SO SHE COULD REST. IV PATENT. NO EDEMA. REFUSES TEDS/SCUDS. CALL LIGHT WITHIN REACH, CALLS APPROPRIATELY. WILL CONTINUE TO MONITOR
[2020-11-25 04:34] VITALS: BP 110/68; PULSE 72; RESP 16; TEMP 36.6; O2SAT 99
[2020-11-25 06:26] VITALS: BMI 24.5
[2020-11-25 06:33] LABS: Basophils % 0.5 % (0.1-2.0); Eosinophils # 0.3 K/mm3 (0.0-0.4); Eosinophils % 5.7 % (0.1-12.0); Hematocrit 29.5 % (37.0-47.0); Hemoglobin 9.6 g/dL (12.2-16.2); Lymphocytes # 1.7 K/mm3 (0.7-4.5); Lymphocytes % 30.2 % (10-50); Mean Corpuscular HGB Conc 32.5 g/dL (31.8-35.4); Mean Corpuscular Hemoglobin 27.8 pg (27.0-31.2); Mean Corpuscular Volume 85.6 fl (81-99); Mean Platelet Volume 7.9 fl (7.4-10.4); Monocytes # 0.4 K/mm3 (0.1-1.0); Monocytes % 7.2 % (1.7-9.3); Neutrophils # 3.2 K/mm3 (1.8-7.8); Neutrophils % 56.4 % (37.0-80.0); Platelet Count 295 K/mm3 (142-424); Red Blood Count 3.45 M/mm3 (4.20-5.40); Red Cell Distribution Width 14.6 % (11.5-17.5); White Blood Count 5.7 K/mm3 (4.8-10.8)
--- NOTE | 2020-11-25 07:08 | PC.NURSE ---
PT WISHES TO DISCUSS HYSTERECTOMY WITH DR. LIN DURING AM ROUNDS, PASSED ALONG IN REPORT
[2020-11-25 08:00] VITALS: O2SAT 100
[2020-11-25 08:11] VITALS: BP 103/59; PULSE 83; RESP 18; TEMP 36.7; O2SAT 100
--- NOTE | 2020-11-25 09:08 | PC.NURSE ---
Pt. up to bathroom by self and back to bed. Called out for nurse to come to room, Nurse to room reports feeling light headed and dizzy, BP at 101/59, o2 at 100. LR infusion going. Pt. resting in bed, at nurses station, report given to MD. Will continue to monitor.
--- NOTE | 2020-11-25 09:10 | PC.NURSE ---
Dr. Delgado in room seeing pt.
--- NOTE | 2020-11-25 09:21 | HMH.DCSUM ---
General - General Admission date:: 11/24/20 Discharge date: 11/25/20 HPI HPI: She is a 45-year-old 3 para 3 lady who was admitted for heavy vaginal bleeding. Her hemoglobin had dropped to 6.9. She was transfused 2 units and her hemoglobin is now stabilized at 9.6. Transvaginal ultrasound showed that she had a posterior 3 cm fibroid. Hospital Course Hospital Course: She received 2 units of blood and has stabilized. Her hemoglobin has stabilized at 9.6. She had an ultrasound that showed a 3 cm posterior fibroid. She also had a chest x-ray for her granulomatous disease and there does not appear to be any change. If this said there was old granulomatous disease. She also has what appears to be COPD. She is taking puffers for this. She would like to go ahead with a hysterectomy. I did offer her an ablation but she would prefer hysterectomy. We will see her in the office tomorrow and in the meantime I will schedule her for her hysterectomy as soon as possible. We will do a laparoscopic-assisted vaginal hysterectomy. She will follow up with me tomorrow. Her condition on discharge is stable and improved. Objective Vital signs: Temp Pulse Resp BP Pulse Ox 98.1 F 83 18 103/59 L 100 11/25/20 08:11 11/25/20 08:11 11/25/20 08:11 11/25/20 08:11 11/25/20 08:11 no acute distress - *Routine HEENT Exam Head: Present: normocephalic Eye: Present: EOMI, PERRL ENT: Present: mucous membranes moist - *Routine Neck Exam Present: supple - *Routine Respiratory Exam Present: CTA bilaterally - *Routine Cardiovascular Exam Present: RRR - *Routine Abdominal Exam Present: soft, normoactive bowel sounds. Absent: tenderness - *Routine Extremities Exam Absent: cyanosis, clubbing, edema - *Routine Skin Exam Present: warm. Absent: rash - Detailed Eye Exam Eyelids: Bilateral normal inspection Results Labs on day of discharge: Labs from last 24 hours 11/25/20 11/24/20 06:14 16:14 WBC 5.7 6.1 RBC 3.45 L 3.45 L D Hgb 9.6 L 9.6 L Hct 29.5 L 30.3 L MCV 85.6 87.9 MCH 27.8 27.8 MCHC 32.5 31.6 L RDW 14.6 14.6 Plt Count 295 294 D MPV 7.9 8.0 Neut % (Auto) 56.4 62.4 Lymph % (Auto) 30.2 27.5 [place] % (Auto) 7.2 7.8 Eos % (Auto) 5.7 2.0 Baso % (Auto) 0.5 0.2 Neut # (Auto) 3.2 3.8 Lymph # (Auto) 1.7 1.7 [place] # (Auto) 0.4 0.5 Eos # (Auto) 0.3 0.1 Baso # (Auto) 0.0 0.0 DS: Diagnosis - Discharge Diagnosis (1) Acute blood loss anemia (ABLA) Status: Acute (2) Anemia Status: Acute (3) DUB (dysfunctional uterine bleeding) Status: Acute (4) Uterine fibroid Status: Acute Discharge Plan - Patient Discharge Instructions ACTIVITY: Ambulate as tolerated DIET: continue same diet Patient Instructions: Anemia, DI for Vaginal Bleeding, Preventing the Spread of Coronavirus Discharge Instructions - Follow up Plan Follow up with: Rubio Delgado MD [Staff Physician] - 11/26/20 3:00 pm Disposition: Home, Self-Assisted Medications: Home Medications Medication Instructions Recorded Confirmed Type Ascorbic Acid [Vitamin C] 1,000 mg PO DAILY 11/23/20 11/23/20 History Budesonide/Formoterol Fumarate 2 puffs PO BID 11/23/20 11/24/20 History [Symbicort 160-4.5 Mcg Inhaler] Cholecalciferol (Vitamin D3) 400 unit PO DAILY 11/23/20 11/23/20 History [Vitamin D-400] Ferrous Sulfate [Ferrous Sulfate 325 mg PO DAILY 11/23/20 11/23/20 History 325mg Tab] Buspirone HCl [Buspar 5mg tablet] 5 mg PO BID 11/24/20 11/24/20 History Ergocalciferol (Vitamin D2) 1 cap PO WEEKLY 11/24/20 11/24/20 History [Drisdol 50,000 units (1.25mg) capsule] Prescriptions/Medication Reconciliation: Continued Ferrous Sulfate [Ferrous Sulfate 325mg Tab] 325 mg PO DAILY Cholecalciferol (Vitamin D3) [Vitamin D-400] 400 unit PO DAILY Budesonide/Formoterol Fumarate [Symbicort 160-4.5 Mcg Inhaler] 2 puffs PO
--- NOTE | 2020-11-25 09:33 | PC.NURSE ---
Pt. reports her bathroom is on second floor of home, and is unable to ambulate up stairs due to weakness, Pt. could benefit from a Bedside commode for home use.
--- NOTE | 2020-11-25 09:40 | PC.NURSE ---
Nurse to pt. room. Pt. states I don't think he should be sending me home today, i just don't feel good. I will probably leave here and go straight to [facility] i don't know what else to do Nurse educated pt. on anemia and the effects on the body pt. v/u. and continues to states i'll probably just go to [facility] after i leave .
--- NOTE | 2020-11-25 09:50 | PC.NURSE ---
Spoke with Dr. Delgado regarding pt. complaints and reports that she will be going to after discharge. Per. Dr. Delgado ask pt. if she wants an ablation that can be done this evening or tomorrow morning. Nurse v/u.
--- NOTE | 2020-11-25 10:00 | SW/DCPLANNER ---
SET UP A BEDSIDE COMMODE FOR THIS PATIENT....IF PATIENT GOES HOME TODAY, BEDSIDE COMMODE WILL BE DELIVERED IF SHE QUALIFIES..
--- NOTE | 2020-11-25 10:15 | PC.NURSE ---
Nurse spoke with pt. regarding Ablation, Teaching provided on procedure. Pt. v/u and requests to have ablation done. Dr. Delgado office notified, awaiting response from .
--- NOTE | 2020-11-25 10:25 | PC.NURSE ---
Spoke with . cancel discharge order, make pt. NPO after midnight, pt. will have Ablation at lunch tomorrow.
--- NOTE | 2020-11-25 13:45 | PC.NURSE ---
Pt. reports feeling weak and light headed remains. Pt. reports Pads x2 in bathroom, and toilet with clots in it for nurse to visualize. 1 marble sized clot and pads x2 with small amount of bright red bleeding noted. Pt. denies needs at this time, will continue to monitor..
--- NOTE | 2020-11-25 16:37 | PC.NURSE ---
Routine reassessment completed. Pt. reports Weakness and dizziness remains, no further acute changes from previous assessment. Pt. has done well throughout the shift, pt. has walked self to and from bathroom, pads remain with small to moderate amount of bleeding, with few small clots noted in toilet. Pt. denies pain, and needs, will continue to monitor.
[2020-11-25 16:40] VITALS: BP 106/56; PULSE 71; RESP 16; TEMP 36.9; O2SAT 100
--- NOTE | 2020-11-25 17:12 | HMH.HP ---
*Admission Date: 11/24/20 *History of present illness: She is a 45-year-old 3 para 3 lady who was admitted for heavy vaginal bleeding. Her hemoglobin had dropped to 6.9. She was transfused 2 units and her hemoglobin is now stabilized at 9.6. Transvaginal ultrasound showed that she had a posterior 3 cm fibroid. [facility] History I have reviewed the patient's past medical history: Yes Medical History: Denies:: Diabetes Mellitus Type 1, Diabetes Mellitus Type 2 *Have you ever received a pneumonia vaccine?: No *Have you received a flu vaccine this season?: No - *Social History Last grade of school completed: GED Smoking Status: Smoker, status unknown Alcohol Intake: never *Occupational Status:: unemployed Housing: apartment Household Members: children *Travel in the last 8 weeks: None Family Hx:: No significant family history Review of Systems - Review of Systems Review of systems:: pertinent systems reviewed and negative unless documented below - *Neurologic Reports weakness, Denies dizziness, Denies headache(s), Denies seizure-like activity Meds Home Medications Medication Instructions Recorded Confirmed Type Ascorbic Acid [Vitamin C] 1,000 mg PO DAILY 11/23/20 11/23/20 History Cholecalciferol (Vitamin D3) 400 unit PO DAILY 11/23/20 11/23/20 History [Vitamin D-400] Ferrous Sulfate [Ferrous Sulfate 325 mg PO DAILY 11/23/20 11/23/20 History 325mg Tab] RX: Budesonide/Formoterol Fumarate 2 puffs PO BID 11/23/20 11/24/20 History [Symbicort 160-4.5 Mcg Inhaler] Buspirone HCl [Buspar 5mg tablet] 5 mg PO BID 11/24/20 11/24/20 History RX: Ergocalciferol (Vitamin D2) 1 cap PO WEEKLY 11/24/20 11/24/20 History [Drisdol 50,000 units (1.25mg) capsule] Allergies Allergy/AdvReac Type Severity Reaction Status Date / Time cefaclor [From Ceclor] Allergy Unknown Verified 11/25/20 08:04 allergy reaction ceftriaxone [From Rocephin] Allergy Unknown Verified 11/25/20 08:04 allergy reaction doxycycline Allergy Unknown Verified 11/25/20 08:04 allergy reaction hydrocodone [From Lortab] Allergy Unknown Verified 11/25/20 08:04 allergy reaction Naproxen Allergy Mild I-ITCHING Uncoded 09/21/17 15:40 SULFA (sulfonamide) Allergy Mild I-HIVES Uncoded 09/21/17 15:40 Exam Vital signs and Labs for Last 24 Hours: Temp Pulse Resp BP Pulse Ox 98.4 F 71 16 106/56 L 100 11/25/20 16:40 11/25/20 16:40 11/25/20 16:40 11/25/20 16:40 11/25/20 16:40 Laboratory Results - last 24 hr 11/25/20 06:14: WBC 5.7, RBC 3.45 L, Hgb 9.6 L, Hct 29.5 L, MCV 85.6, MCH 27.8, MCHC 32.5, RDW 14.6, Plt Count 295, MPV 7.9, Neut % (Auto) 56.4, Lymph % (Auto) 30.2, [place] % (Auto) 7.2, Eos % (Auto) 5.7, Baso % (Auto) 0.5, Neut # (Auto) 3.2, Lymph # (Auto) 1.7, [place] # (Auto) 0.4, Eos # (Auto) 0.3, Baso # (Auto) 0.0 I & O for Last 24 hours: Intake & Output 11/23/20 11/24/20 11/25/20 11/26/20 11:59 11:59 11:59 11:59 Intake Total 1996 120 / 120 Balance 1996 120 / 120 Weight 130 lb 130 lb - Constitutional no acute distress - *Routine HEENT Exam Head: Present: normocephalic Eye: Present: EOMI, PERRL ENT: Present: mucous membranes moist - *Routine Neck Exam Present: supple, full ROM - *Routine Respiratory Exam Absent: accessory muscle use (good air entry bilaterally), wheezes, crackles - *Routine Cardiovascular Exam Present: RRR. Absent: murmur - *Routine Abdominal Exam Present: soft, normoactive bowel sounds. Absent: tenderness, rebound, guarding, mass - *Routine Rectal Exam Patient deferred: visual exam, digital exam - *Routine Exam Patient deferred: external exam, groin exam, perineal exam - *Routine Extremities Exam Present: full ROM. Absent: cyanosis, edema, calf tenderness - *Routine Skin Exam Present: intact (good color) - *Routine Neurological Exam Present: alert, oriented X3 - Routine Psychiatric Ex
--- NOTE | 2020-11-25 17:15 | PC.NURSE ---
Pt. c/o of heart palpitations, stat EKG ordered.
--- NOTE | 2020-11-25 17:30 | PC.NURSE ---
Respiratory in room obtaining EKG.
--- NOTE | 2020-11-25 17:35 | PC.NURSE ---
Dr. Delgado in room with pt. EKG results shown to Dr. Delgado, NSR per .
--- NOTE | 2020-11-25 17:45 | ECG_ITS ---
APPROVED REPORT Exam: Resting ECG HR:81 bpm ECG Measurements Heart Rate 81 AXES RI 122 P 47 QRSd 74 QRS 52 QT 382 T 34 QTc 443 Conclusion Normal sinus rhythm Normal ECG Electronically signed by : Shayan Cota, 11/26/2020 08:46:30
[2020-11-25 17:48] LABS: Hematocrit 29.7 % (37.0-47.0); Hemoglobin 9.4 g/dL (12.2-16.2)
[2020-11-25 20:00] VITALS: BP 118/66; PULSE 92; RESP 16; TEMP 36.9; O2SAT 100; O2SAT 99
[2020-11-26] VITALS (17 sets, daily range): BP systolic 93–126; BP diastolic 49–99; PULSE 70–105; RESP 16–20; TEMP 36.3–36.7; O2SAT 96–100
--- NOTE | 2020-11-26 01:40 | PC.NURSE ---
patient called out saying that she is feeling gas pain in her ribs and left shoulder at this time. patient states i don't want any medicine because it just makes it worse but agreed to sit up in the bed slightly. patient did ask for a cold wet washcloth to put on her neck. no other needs voiced at this time. patient wants to attempt to sleep
--- NOTE | 2020-11-26 03:33 | PC.NURSE ---
patient called out asking for a warm blanket. she stated that she is hurting all over . pain medication offered per MAR and patient declined stating that the medicine only makes her bleeding worse . Warm blanket applied and patient stated this this made her feel a bit better. No other needs or concerns voiced.
--- NOTE | 2020-11-26 03:37 | PC.NURSE ---
no changes this shift on reassessment. patient continues to have small to moderate amount of bright red vaginal bleeding with small occasional clots. patient occasionally reports mild pain but has continued to decline medication offered stating that it will make her bleeding worse. she has slept well this shift and has called out appropriately. IV is patent and flushes well. She is NPO since midnight. she has voided without difficulty. Lungs clear to auscultation bilaterally and bowels are active in all quadrants. patient has has some gas pains this shift but has declined any interventions. Scuds/teds refused.
--- NOTE | 2020-11-26 06:57 | PC.NURSE ---
ALL CARE AND CHARTING UNDER MY DIRECT SUPERVISION
--- NOTE | 2020-11-26 07:30 | PC.NURSE ---
Report received from ChristieRN
--- NOTE | 2020-11-26 08:07 | HMH.ACPN2 ---
Internal Medicine - PN: Subj *Date: 11/26/20 *Time: 08:07 Interval history: She is doing well this morning. Her bleeding has somewhat settled. We repeated her hemoglobin last night and it was 9.4. She does complain of being hot at times and says that she occasionally has a skipping in her heartbeat. We did an EKG last night and it was normal. We will plan to perform an endometrial ablation today. Exam Vital signs and Labs for Last 24 Hours: Temp Pulse Resp BP Pulse Ox 97.9 F 70 16 93/54 L 99 11/26/20 07:38 11/26/20 07:38 11/26/20 07:38 11/26/20 07:38 11/26/20 07:38 Laboratory Results - last 24 hr 11/25/20 17:40: Hgb 9.4 L, Hct 29.7 L I & O for Last 24 hours: Intake & Output 11/23/20 11/24/20 11/25/20 11/26/20 11:59 11:59 11:59 11:59 Intake Total 1996 120 / 120 Balance 1996 120 / 120 Weight 130 lb 130 lb - Constitutional no acute distress - *Routine HEENT Exam Head: Present: normocephalic Eye: Present: EOMI, PERRL ENT: Present: mucous membranes moist Assessment and Plan (1) Acute blood loss anemia (ABLA) Status: Acute Category: Medical Code(s): D62 - Acute posthemorrhagic anemia (2) Anemia Status: Acute Qualifiers: Anemia type: unspecified type Qualified Code(s): D64.9 - Anemia, unspecified Category: Medical Code(s): D64.9 - Anemia, unspecified (3) DUB (dysfunctional uterine bleeding) Status: Acute Category: Medical Code(s): N93.8 - Other specified abnormal uterine and vaginal bleeding (4) Uterine fibroid Status: Acute Qualifiers: Uterine leiomyoma location: unspecified location Qualified Code(s): D25.9 - Leiomyoma of uterus, unspecified Category: Medical Code(s): D25.9 - Leiomyoma of uterus, unspecified - Assessment and plan all Dx Assessment and Plan for all problems:: She is doing well this morning. She does complain of palpitations at some times. She otherwise is doing well. We will plan to perform her surgery this morning. I suspect she may have some anxiety as well.
--- NOTE | 2020-11-26 09:40 | PC.NURSE ---
Dr. Delgado notified of pt's anxiety and questions / concerns about procedure. V/U. Xanax 0.5mg PO now.
--- NOTE | 2020-11-26 09:53 | PC.NURSE ---
Pt getting up to shower at this time.
--- NOTE | 2020-11-26 11:28 | PC.NURSE ---
Taken to Pre-op via w/c and surgery staff x2.
--- NOTE | 2020-11-26 12:18 | P.OP_ITS ---
Date of procedure: 11/26/20 Pre-op Diagnosis:: Menorrhagia, anemia, fibroid uterus Post-op Diagnosis:: Menorrhagia, anemia, fibroid uterus Procedure performed:: Hysteroscopy, dilation and curettage, NovaSure ablation Surgeon:: Rubio Delgado MD TEACHER EDUCATION DIRECTOR:: Cholo Nassar Anesthesia: LMA Estimated blood loss (mL): 25 Clinical Note:: She is a 45-year-old lady who came into the ER a couple of days ago with extremely heavy bleeding. She was symptomatic and her hemoglobin was found to be 6.9. As result of that she was transfused 2 units that admitted. An u ltrasound showed that she had a 3 cm fibroid. It was intramural. After having discussed the risk and benefits we elected perform a hysteroscopy, D&C and NovaSure ablation. Operative findings:: She had a normal-appearing endometrial cavity that sounded to 9 cm. The endometrium itself appeared consistent with having had a recent period. Was quite fluffy. Operative note:: She was taken to the operating room where LMA anesthesia was found be adequate. She was prepped and draped in the normal sterile fashion in the lithotomy position. A weighted speculum was placed in the vagina and the anterior lip of the cervix was grasped with a tenaculum. The cervix was then dilated to approximately 6 mm. I then inserted a hysteroscope into the uterine cavity and the findings were as previously dictated. I then performed a gentle curettage with a medium curette. I then sounded the uterus and determine the length of the uterus which was 9 cm. The endometrial length was was 6.5 cm and the width was 4.6 cm.. This was placed into the NovaSure device. I then inserted the NovaSure device. I then ran the device through its program. I further inspected the endometrial cavity and was found to be completely charred. I then injected 30 cc of 0.5% ropivacaine at the 3:00, 5:00, 7:00, and 9:00 positions of the cervix. She tolerated procedure well and was taken to the recovery room in excellent condition. All sponge and instrument counts were correct. The estimated blood loss was less than 25 cc. Condition: stable Disposition: PACU Specimens:: Endometrial curettings Complications:: None
--- NOTE | 2020-11-26 12:26 | P.PN_ITS ---
[facility] Anesthesia Checklist - Patient Identification Patient Identification: Arm Band - Structural Data Admitted From: Inpatient Planned Operative Procedure/s: Hysteroscopy D&C, Novasure Ablation Consent for Planned Operative Procedure(s) Verified: Yes Verified Documents: Surgical Consent, History and Physical - NPO Status Verified Time NPO: 00:00 - Additional verifications Anesthesia Reactions: No - Airway Assessment C-Spine Mobility Assessed: Yes (mp2) TMJ Mobility Assessed: Yes Dentition: Good Dentition - Neurological Assessment Level of Consciousness: Awake, Alert - Anesthesia Plan Anesthesia Risk discussed: Yes Anesthesia Plan: Verified ASA Class: II Anesthesia Type: General [facility] History I have reviewed the patient's past medical history: Yes Medical History: Denies:: Diabetes Mellitus Type 1, Diabetes Mellitus Type 2 *Have you ever received a pneumonia vaccine?: No *Have you received a flu vaccine this season?: No Anesthesia experience/problems:: nac Other Surgeries: Yes: Cholecystectomy, Other - *Social History Last grade of school completed: GED Smoking Status: Smoker, status unknown Alcohol Intake: never Substance Use Type: denies use *Occupational Status:: unemployed Housing: apartment Household Members: children *Travel in the last 8 weeks: None Family Hx:: No significant family history
--- NOTE | 2020-11-26 12:27 | P.PN_ITS ---
[facility] Anesthesia Record Part I Intake, IV Amount: 400 Estimated blood loss (mL): 25 Urine output (mL): 0 Blood Pressure: 109/72 SaO2: 96 Pulse Rate: 70 Respiratory Rate: 16 Temperature: 97.5 F Patient is:: Drowsy, Stable Stable to PACU at:: 12:20
--- NOTE | 2020-11-26 13:15 | PC.NURSE ---
Pt back to the room via bed from pacu with staff x2. Pt accompanied to the room by her mother.
--- NOTE | 2020-11-26 15:35 | PC.NURSE ---
DR. LIN HERE FOR ROUNDS. ORDERS RECEIVED TO DISCHARGE PT HOME AFTER DINNER TONIGHT. R/V.
--- NOTE | 2020-11-26 15:41 | HMH.DCSUM ---
General - General Admission date:: 11/24/20 Discharge date: 11/26/20 HPI HPI: She is a 45-year-old 3 para 3 lady who was admitted for heavy vaginal bleeding. Her hemoglobin had dropped to 6.9. She was transfused 2 units and her hemoglobin is now stabilized at 9.6. Transvaginal ultrasound showed that she had a posterior 3 cm fibroid. Hospital Course Hospital Course: On admission she received 2 units of blood and her hemoglobin was 9.4 yesterday evening. Today she underwent a hysteroscopy, D&C and NovaSure ablation. She is doing better. She is no longer bleeding. She had an ultrasound that showed a fibroid uterus however it was intramural. We elected to do the hysteroscopy D&C since I felt that this would be a good quick fix for her. I told her that if she continued to have heavy periods or excessive bleeding in the future then we could certainly consider a hysterectomy. She will be discharged home to follow-up with me in approximately 2 weeks time. She will continue with her iron tablets at home medications. She has had some bouts of anxiety and it sounds like she had anxiety in the past. We will go ahead and start Vistaril 25 mg every 6 hours as needed for anxiety. I have also given her a prescription for Percocet 5/325 number 12 tablets for pain as well. Her condition on discharge is stable and improved. Objective Vital signs: Temp Pulse Resp BP Pulse Ox 97.4 F L 100 H 18 126/99 H 100 11/26/20 14:15 11/26/20 14:15 11/26/20 14:15 11/26/20 14:15 11/26/20 14:15 no acute distress - *Routine HEENT Exam Head: Present: normocephalic Eye: Present: EOMI, PERRL ENT: Present: mucous membranes moist Results Labs on day of discharge: Labs from last 24 hours 11/25/20 17:40 Hgb 9.4 L Hct 29.7 L DS: Diagnosis - Discharge Diagnosis (1) Acute blood loss anemia (ABLA) Status: Acute (2) Anemia Status: Acute (3) DUB (dysfunctional uterine bleeding) Status: Acute (4) Uterine fibroid Status: Acute Discharge Plan - Patient Discharge Instructions ACTIVITY: Ambulate as tolerated DIET: continue same diet Patient Instructions: Anemia, Endometrial Ablation, DI for Vaginal Bleeding, Preventing the Spread of Coronavirus Discharge Instructions - Follow up Plan Follow up with: Rubio Delgado MD [Staff Physician] - 11/26/20 3:00 pm Disposition: Home, Self-Skilled Nursing Medications: Home Medications Medication Instructions Recorded Confirmed Type Ascorbic Acid [Vitamin C] 1,000 mg PO DAILY 11/23/20 11/23/20 History Budesonide/Formoterol Fumarate 2 puffs PO BID 11/23/20 11/24/20 History [Symbicort 160-4.5 Mcg Inhaler] Cholecalciferol (Vitamin D3) 400 unit PO DAILY 11/23/20 11/23/20 History [Vitamin D-400] Ferrous Sulfate [Ferrous Sulfate 325 mg PO DAILY 11/23/20 11/23/20 History 325mg Tab] Buspirone HCl [Buspar 5mg tablet] 5 mg PO BID 11/24/20 11/24/20 History Ergocalciferol (Vitamin D2) 1 cap PO WEEKLY 11/24/20 11/24/20 History [Drisdol 50,000 units (1.25mg) capsule] Oxycodone HCl/Acetaminophen 1 tab PO Q4-6H PRN #12 tablet 11/26/20 Rx [Percocet 5/325mg tablet] hydrOXYzine pamoate [Vistaril 25mg 25 mg PO Q8H PRN #90 cap 11/26/20 Rx capsule] Prescriptions/Medication Reconciliation: New Oxycodone HCl/Acetaminophen [Percocet 5/325mg tablet] 1 tab PO Q4-6H PRN #12 tablet PRN Reason: Severe Pain hydrOXYzine pamoate [Vistaril 25mg capsule] 25 mg PO Q8H PRN #90 cap PRN Reason: Anxiety Continued Ferrous Sulfate [Ferrous Sulfate 325mg Tab] 325 mg PO DAILY Cholecalciferol (Vitamin D3) [Vitamin D-400] 400 unit PO DAILY Budesonide/Formoterol Fumarate [Symbicort 160-4.5 Mcg Inhaler] 2 puffs PO BID Ascorbic Acid [Vitamin C] 1,000 mg PO DAILY Ergocalciferol (Vitamin D2) [Drisdol 50,000 units (1.25mg) capsule] 1 cap PO WEEKLY Buspirone HCl [Buspar 5mg tablet] 5 mg P
--- NOTE | 2020-11-27 08:21 | HMH.ANESII ---
[facility] Anesthesia Record Part II Discharge Time: 13:00 Destination: Obstetric PACU nurse assessment reviewed?: Yes Patient Condition:: Good Anesthesia Complications:: None Swallowing reflex intact?: Yes Cyanosis?: No Blood Pressure: 110/77 Pulse Rate: 77 Temperature: 97.6 F Mental Status: Alert & Oriented Pain level:: 5 Nausea and/or vomitting:: None Intake, IV Amount: 0
[2020-11-27 08:22] VITALS: BP 110/77; PULSE 77; TEMP 36.4
== END 2020-11-26 18:29 | disposition home or self-care (01) ==
LOC: ER 22:53 → OB 11-24 01:10
PROVIDERS: Admitting Provider Obstetrics & Gynecology; Emergency Provider Emergency Medicine; PCP Family Medicine; Visit Provider Nurse Practitioner Obstetrics & Gynecology
PROC: 0U5B8ZZ Destruction of Endometrium, Via Natural or Artificial Opening Endoscopic (ICD-10-PCS; CPT 58563; principal; 2020-11-26 11:45)
DX: D62 Acute posthemorrhagic anemia (principal); N93.8 Other specified abnormal uterine and vaginal bleeding; Z88.1 Allergy status to other antibiotic agents; Z88.2 Allergy status to sulfonamides; D25.1 Intramural leiomyoma of uterus; Z88.8 Allergy status to other drugs, medicaments and biological substances
CPT/HCPCS: 58563; 36415; 71046; 76830; 80053; 81001; 84145; 84703; 85014; 85018; 85025; 85651; 86140; 86850; 88305; 93005; 94761; 99285; G0283; G0378; J2405; P9016; U0003

== ENCOUNTER 2020-12-01 20:20 | Emergency (ER) | payer OTHER, SELFPAY ==
[2020-12-01 20:22] VITALS: BP 129/79; PULSE 105; RESP 18; TEMP 36.9; O2SAT 98; BMI 24.5
--- NOTE | 2020-12-01 20:30 | XR_ITS ---
PROCEDURE: XR CHEST 2V CLINICAL HISTORY: dyspnea Shortness of air and weakness COMPARISON: CR CXR2V XR chest 2V from 11/05/2017 CR XR CHEST 2V from 11/24/2020 FINDINGS: The cardiomediastinal silhouette and pulmonary vascularity are within normal limits. The lungs are clear without infiltrates, suspicious nodules, or pleural effusions. Calcified granuloma right upper lobe There is hyperinflation with eventration of the hemidiaphragms. This had a similar appearance on the previous exam.. No acute bony finding. IMPRESSION: No interval change. Persistent hyperinflation which may be seen with COPD, asthma, or bronchitis. Dictated by: Arun Ruvalcaba MD 12/02/2020 05:52 Arun Ruvalcaba MD in [place] 12/02/2020 05:52
--- NOTE | 2020-12-01 20:30 | ECG_ITS ---
APPROVED REPORT Exam: Resting ECG HR:97 bpm ECG Measurements Heart Rate 97 AXES MT 120 P 63 QRSd 80 QRS 58 QT 356 T 54 QTc 452 Conclusion Normal sinus rhythm Normal ECG Electronically signed by : Shayan Cota, 12/03/2020 17:22:57
--- NOTE | 2020-12-01 20:33 | PC.NURSE ---
pt refused iv line. will consent to lab draw.
--- NOTE | 2020-12-01 20:33 | HMH.EDGENADL ---
ED Disposition Clinical Impression: Elevated d-dimer, Left against medical advice Dyspnea Qualifiers: Dyspnea type: shortness of breath Qualified Code(s): R06.02 - Shortness of breath Disposition: Left Against Medical Advice Condition on Discharge: Fair Instructions: Echocardiogram, DI for Deep Vein Thrombosis, DI for Pulmonary Embolism, DI for Shortness of Breath Additional Instructions: You have been evaluated for shortness of breath. Please follow-up tomorrow for echocardiogram and lower extremity Doppler ultrasounds to assess for DVT and right heart strain, due to pulmonary embolus. Follow-up with your primary care doctor as soon as available. Follow-up with Dr. Villar, cardiology in clinic. Return to the emergency department at once if you have any new or worsening symptoms, chest pain, shortness of breath, any other concerns. Referrals: Angie Matt [Primary Care Provider] - Ciro Kemp MD [Staff Physician] - Jimenez Villar MD [Staff Physician] - Time of Disposition: 22:42 - Critical Care Critical Care Time: No Attestation: On , the high probability of a clinically significant, sudden or life threatening deterioration of the following system(s) required my full and direct attention, intervention and personal management. The time I documented below is in addition to time spent performing reported procedures but includes the following listed in this critical care notation. Medical Decision Making - Medical Records Medical records reviewed: Yes: I reviewed the patient's medical records. - Narayan Inquiry Pt receiving controlled substance: No Vital Signs: 12/01/20 20:22 12/01/20 21:00 12/01/20 22:42 Temperature 98.4 F Temperature Source Oral Pulse Rate Pulse Rate [Apical] 105 H 80 Respiratory Rate 18 18 Blood Pressure Blood Pressure [Right Arm] 129/79 114/74 Blood Pressure Mean [Right Arm] 95 87 Blood Pressure Source Blood Pressure Source [Right Arm] Automatic Cuff Automatic Cuff Blood Pressure Position Blood Pressure Position [Right Arm] Supine Supine 02 Sat by Pulse Oximetry 98 100 Oxygen Delivery Method Room Air Room Air Room Air 12/01/20 22:46 Temperature 97.9 F Temperature Source Oral Pulse Rate 97 H Pulse Rate [Apical] Respiratory Rate 18 Blood Pressure 110/65 Blood Pressure [Right Arm] Blood Pressure Mean [Right Arm] Blood Pressure Source Automatic Cuff Blood Pressure Source [Right Arm] Blood Pressure Position Supine Blood Pressure Position [Right Arm] 02 Sat by Pulse Oximetry Oxygen Delivery Method Room Air - Lab Data Lab Results 12/01/20 21:00: WBC 6.7, RBC 4.04 L, Hgb 11.0 L, Hct 35.9 L, MCV 89.0, MCH 27.3, MCHC 30.7 L, RDW 14.5, Plt Count 365, MPV 7.6, Neut % (Auto) 46.1, Lymph % (Auto) 40.4, Guthrie % (Auto) 6.1, Eos % (Auto) 6.5, Baso % (Auto) 1.0, Neut # (Auto) 3.1, Lymph # (Auto) 2.7, Guthrie # (Auto) 0.4, Eos # (Auto) 0.4, Baso # (Auto) 0.1 12/01/20 21:00: Sodium 139, Potassium 4.1, Chloride 105, Carbon Dioxide 26, Anion Gap 12.1, BUN 11, Creatinine 0.60, Estimated Creat Clear 108, Estimated GFR 107, Est GFR ( Amer) 130, Glucose 98, Calcium 9.1, Troponin I < 0.01 12/01/20 21:00: D-Dimer 1.68 H 12/01/20 21:00: NT-Pro-B Natriuret Pep 37.5 Result diagrams: 12/01/20 21:00 12/01/20 21:00 Orders (Tests/Meds): ORDERS Category Date Time Status CXR 2 view (NOT portable) [XR chest 2V] Stat Exams 12/01/20 20:30 Taken Covid-19 Nasal PCR ([facility]) Routine Lab 12/01/20 21:00 Received Troponin I Q3 Lab 12/01/20 23:30 Ordered EKG Request [ECG Request by /Anabel] Stat Y 12/01/20 20:31 Ordered - ECG Data Tracing #1 Sinus rhythm with ventricular rate of 97 bpm. QRS 80, QTc 452. Evidence of LVH. No evidence of ischemia or arrhythmia. Medical Decision Narrative: In summary this is a 45-year-old female presenting to the emergency department with dyspnea. She is clinically stable on arrival. Vital signs within normal
--- NOTE | 2020-12-01 20:47 | PC.NURSE ---
Pt now agreeable to IV insertion
[2020-12-01 21:00] VITALS: BP 114/74; PULSE 80; RESP 18; O2SAT 100
[2020-12-01 21:16] LABS: Basophils # 0.1 K/mm3 (0-0.2); Eosinophils # 0.4 K/mm3 (0.0-0.4); Eosinophils % 6.5 % (0.1-12.0); Hematocrit 35.9 % (37.0-47.0); Lymphocytes # 2.7 K/mm3 (0.7-4.5); Lymphocytes % 40.4 % (10-50); Mean Corpuscular HGB Conc 30.7 g/dL (31.8-35.4); Mean Corpuscular Hemoglobin 27.3 pg (27.0-31.2); Mean Platelet Volume 7.6 fl (7.4-10.4); Monocytes # 0.4 K/mm3 (0.1-1.0); Monocytes % 6.1 % (1.7-9.3); Neutrophils # 3.1 K/mm3 (1.8-7.8); Neutrophils % 46.1 % (37.0-80.0); Platelet Count 365 K/mm3 (142-424); Red Blood Count 4.04 M/mm3 (4.20-5.40); Red Cell Distribution Width 14.5 % (11.5-17.5); White Blood Count 6.7 K/mm3 (4.8-10.8)
[2020-12-01 21:20] LABS: Chloride 105 mmol/L (98-107); Potassium 4.1 mmoL/L (3.5-5.1); Sodium 139 mmol/L (136-145)
[2020-12-01 21:23] LABS: Anion Gap 12.1 mEq/L (5-15); Blood Urea Nitrogen 11 mg/dl (7-17); Calcium 9.1 mg/dl (8.4-10.2); Carbon Dioxide 26 mmol/L (22.0-30.0); Creatinine Clearance Estimated 108 mL/min (50-200); Estimated Glomerular Filt Rate 107 ml/min (>60); GFR (African American) 130 ML/MIN (>60); Glucose 98 mg/dl (74-100)
[2020-12-01 21:28] LABS: D-Dimer 1.68 ug/mL (0.0-0.5)
[2020-12-01 21:34] LABS: NT Pro Brain Natriuretic Pep. 37.5 pg/mL (0-125)
[2020-12-01 21:39] LABS: Troponin I < 0.01 ng/ml (0.00-0.034)
[2020-12-01 22:46] VITALS: BP 110/65; PULSE 97; RESP 18; TEMP 36.6; O2SAT 97
--- NOTE | 2020-12-01 22:58 | PC.NURSE ---
Pt requesting to leave AMA. She refused CT for PE stating she has had reactions to contrast. MD explained need for scan and gave option of pre-medicating. Pt stated I don't want anything in my body that doesn't need to be . MD offered outpatient echo and doppler and pt is agreeable. Pt explained risks of leaving AMA and she verbalized understanding. AMA form signed and placed on chart. Pt educated to return to ED if worsening s//s.
== END 2020-12-01 22:49 | disposition left against medical advice (07) ==
PROVIDERS: Emergency Provider Emergency Medicine; PCP Family Medicine
DX: R06.02 Shortness of breath (principal); J44.9 Chronic obstructive pulmonary disease, unspecified; R79.89 Other specified abnormal findings of blood chemistry; Z79.899 Other long term (current) drug therapy
CPT/HCPCS: 71046; 80048; 83880; 84484; 85025; 85378; 93005; 99283; U0003

== ENCOUNTER 2020-12-02 10:16 | Emergency (ER) | payer OTHER, SELFPAY ==
[2020-12-02 10:18] VITALS: BP 126/59; PULSE 92; RESP 18; TEMP 36.6; O2SAT 100; BMI 24.5
--- NOTE | 2020-12-02 10:22 | HMH.EDSOB ---
ED Disposition Clinical Impression: Shortness of breath Disposition: Home, Self-Care Condition on Discharge: Good Referrals: Angie Matt [Primary Care Provider] - 3 days Time of Disposition: 13:10 - Critical Care Critical Care Time: No Attestation: On 12/02/20, the high probability of a clinically significant, sudden or life threatening deterioration of the following system(s) required my full and direct attention, intervention and personal management. The time I documented below is in addition to time spent performing reported procedures but includes the following listed in this critical care notation. Medical Decision Making - Medical Records Medical records reviewed: Yes: I reviewed the patient's medical records. - Narayan Inquiry Pt receiving controlled substance: No Vital Signs: 12/02/20 10:18 12/02/20 10:58 Temperature 97.9 F Temperature Source Oral Pulse Rate [Right Radial] 92 H 80 Respiratory Rate 18 18 Blood Pressure [Right Arm] 126/59 L 114/74 Blood Pressure Mean [Right Arm] 81 87 Blood Pressure Source [Right Arm] Automatic Cuff Blood Pressure Position [Right Arm] Sitting 02 Sat by Pulse Oximetry 100 100 Oxygen Delivery Method Room Air - Lab Data Lab results reviewed: Yes: I reviewed the patient's lab results. Lab Results 12/02/20 10:40: WBC 4.2 L D, RBC 3.77 L, Hgb 10.4 L, Hct 32.8 L, MCV 86.8, MCH 27.5, MCHC 31.7 L, RDW 14.3, Plt Count 291, MPV 7.4, Neut % (Auto) 48.3, Lymph % (Auto) 36.7, Cassia % (Auto) 7.4, Eos % (Auto) 6.9, Baso % (Auto) 0.8, Neut # (Auto) 2.0, Lymph # (Auto) 1.5, Cassia # (Auto) 0.3, Eos # (Auto) 0.3, Baso # (Auto) 0.0 12/02/20 10:40: Sodium 139, Potassium 4.2, Chloride 108 H, Carbon Dioxide 25, Anion Gap 10.2, BUN 11, Creatinine 0.60, Estimated Creat Clear 108, Estimated GFR 107, Est GFR ( Amer) 130, Glucose 100, Calcium 8.9, Total Bilirubin 0.3, AST 30, ALT 26, Alkaline Phosphatase 66, Troponin I < 0.01, Total Protein 6.9, Albumin 4.0, Globulin 2.9, Albumin/Globulin Ratio 1.4 Result diagrams: 12/02/20 10:40 12/02/20 10:40 Orders (Tests/Meds): ED MEDICATIONS Discontinued Medications Generic Name Dose Route Start Last Admin Trade Name Isael PRN Reason Stop Dose Admin Diphenhydramine HCl 12.5 mg 12/02/20 10:32 12/02/20 10:53 Diphenhydramine 50mg/Ml Vial IV 12/02/20 10:33 12.5 mg ONCE ONE Administration Iopamidol 70 ml 12/02/20 11:30 12/02/20 11:32 Iopamidol-370 (76%);100ml Bottle IV 12/02/20 11:31 70 ml ONCE ONE Administration Methylprednisolone Sodium Succinate 80 mg 12/02/20 10:32 12/02/20 10:53 Methylprednisolone Sod Succ 40mg Vial IV 12/02/20 10:33 80 mg ONCE ONE Administration Sodium Chloride 20 ml 12/02/20 11:30 12/02/20 11:32 0.9% Sodium Chloride 20ml Vial IV 12/02/20 11:31 20 ml ONCE ONE Administration Sodium Chloride 10 ml 12/02/20 11:30 12/02/20 11:32 Sodium Chloride 0.9% 10ml Syr (Rad Only) IV 12/02/20 11:31 10 ml ONCE ONE Administration Sodium Chloride 20 ml 12/02/20 11:31 12/02/20 11:32 0.9% Sodium Chloride 20ml Vial IV 12/02/20 11:32 20 ml ONCE ONE Administration - CT Data CT Scan: Chest Time Received: 12:[address] Reviewed: Yes: I have reviewed the patient's CT results, I have viewed the radiologist's interpretation Preliminary Findings: Normal/NAD Medical Decision Narrative: 45yo F returns the emergency department to complete the work-up that was initiated last night. Patient is now willing to undergo premedication given her reported history of allergy to contrast. Patient reports her allergy was that she became very warm all over and then developed shortness of breath. I doubt this was a true allergy as a flushed feeling is normal and the patient likely became anxious and developed shortness of breath, but will go ahead and pretreat out of an abundance of caution. Patient is returned from her CAT scan in no acute distress. Her vital signs are stable. S
--- NOTE | 2020-12-02 10:31 | CT_ITS ---
PROCEDURE: CT ANGIO CHEST CLINCIAL INDICATION: elevated D dimer Shortness of air, elevated D-dimer COMPARISON: No exams were available for comparison TECHNIQUE: IV Contrast: 70ML Isovue 370 Axial images obtained with sagittal and coronal reformats. All CT scans at the facility use one or more dose reduction, viz: automated exposure control, ma/kV adjustment per patient size (including targeted exams where dose is matched to indication, i.e. head), or iterative reconstruction technique. FINDINGS: HEART AND MEDIASTINAL STRUCTURES: No evidence of pulmonary embolus, aortic aneurysm, or aortic dissection. LUNGS AND PLEURAL SPACES: Old granulomatous disease.. No suspicious nodules. No infiltrates or effusions. BONY STRUCTURES: No acute bony abnormalities apparent. UPPER ABDOMEN: Unremarkable. ADDITIONAL FINDINGS: No other significant abnormalities. IMPRESSION: No acute finding. Dictated by: Arun Ruvalcaba MD 12/02/2020 11:52 Arun Ruvalcaba MD in [place] 12/02/2020 11:52
[2020-12-02 10:58] VITALS: BP 114/74; PULSE 80; RESP 18; O2SAT 100
[2020-12-02 11:05] LABS: Basophils % 0.8 % (0.1-2.0); Eosinophils # 0.3 K/mm3 (0.0-0.4); Eosinophils % 6.9 % (0.1-12.0); Hematocrit 32.8 % (37.0-47.0); Hemoglobin 10.4 g/dL (12.2-16.2); Lymphocytes # 1.5 K/mm3 (0.7-4.5); Lymphocytes % 36.7 % (10-50); Mean Corpuscular HGB Conc 31.7 g/dL (31.8-35.4); Mean Corpuscular Hemoglobin 27.5 pg (27.0-31.2); Mean Corpuscular Volume 86.8 fl (81-99); Mean Platelet Volume 7.4 fl (7.4-10.4); Monocytes # 0.3 K/mm3 (0.1-1.0); Monocytes % 7.4 % (1.7-9.3); Neutrophils % 48.3 % (37.0-80.0); Platelet Count 291 K/mm3 (142-424); Red Blood Count 3.77 M/mm3 (4.20-5.40); Red Cell Distribution Width 14.3 % (11.5-17.5); White Blood Count 4.2 K/mm3 (4.8-10.8)
[2020-12-02 11:06] LABS: Chloride 108 mmol/L (98-107); Potassium 4.2 mmoL/L (3.5-5.1); Sodium 139 mmol/L (136-145)
[2020-12-02 11:09] LABS: Alanine Aminotransferase 26 U/L (12-78); Albumin/Globulin Ratio 1.4 (1.1-1.8); Alkaline Phosphatase 66 U/L (38-126); Anion Gap 10.2 mEq/L (5-15); Aspartate Amino Transferase 30 U/L (14-36); Bilirubin,Total 0.3 mg/dl (0.2-1.3); Blood Urea Nitrogen 11 mg/dl (7-17); Carbon Dioxide 25 mmol/L (22.0-30.0); Creatinine Clearance Estimated 108 mL/min (50-200); Estimated Glomerular Filt Rate 107 ml/min (>60); GFR (African American) 130 ML/MIN (>60); Globulin 2.9 g/dL (1.3-3.2); Total Protein,Serum 6.9 g/dl (6.3-8.2)
[2020-12-02 11:10] LABS: Calcium 8.9 mg/dl (8.4-10.2); Glucose 100 mg/dl (74-100)
--- NOTE | 2020-12-02 11:19 | PC.NURSE ---
pt to CT
[2020-12-02 11:25] LABS: Troponin I < 0.01 ng/ml (0.00-0.034)
--- NOTE | 2020-12-02 11:59 | ECG_ITS ---
APPROVED REPORT Exam: Resting ECG HR:70 bpm ECG Measurements Heart Rate 70 AXES GA 132 P 64 QRSd 72 QRS 63 QT 410 T 53 QTc 442 Conclusion Normal sinus rhythm Normal ECG Electronically signed by : Shayan Cota, 12/05/2020 10:06:16
--- NOTE | 2020-12-02 11:59 | CA_ITS ---
APPROVED REPORT Bilateral Lower Extremity Venous Study for DVT. Flap Presser: CARLITOS HelmT Indications Lower Extremity Edema: Right Shortness of breath Elevated d dimer Vein Imaging CFV (R): compressive, spontaneous, phasic, augmentation FEM (R): compressive, spontaneous, phasic, augmentation POP (R): compressive, spontaneous, phasic, augmentation PTV (R): Compressible GSV (R): Compressible Peroneals (R):Compressible GAS (R): Compressible CFV (L): compressive, spontaneous, phasic, augmentation FEM (L): compressive, spontaneous, phasic, augmentation POP (L): compressive, spontaneous, phasic, augmentation PTV (L): Compressible GSV (L): Compressible Peroneals (L):Compressible GAS (L): Compressible Findings Study suggests no evidence of DVT of the bilateral lower extremites. Study suggests no evidence of SVT of the bilateral lower extremities. Conclusion Study suggests no evidence of DVT of the bilateral lower extremites. Study suggests no evidence of SVT of the bilateral lower extremities. Critical Notification Physician Notified Date: 12/02/2020 Time: 13:18 Physician Name: Nhi RIVERA [employer]olstery Parts Sorter Electronically signed by : Arun Ruvalcaba MD 12/02/2020 16:49:51
[2020-12-02 13:34] VITALS: BP 116/61; PULSE 76; RESP 18; TEMP 36.6; O2SAT 96
== END 2020-12-02 13:34 | disposition home or self-care (01) ==
PROVIDERS: Emergency Provider Family Medicine; PCP Family Medicine
DX: R06.02 Shortness of breath (principal); R00.0 Tachycardia, unspecified; F17.210 Nicotine dependence, cigarettes, uncomplicated; Z88.1 Allergy status to other antibiotic agents; Z88.2 Allergy status to sulfonamides; Z88.8 Allergy status to other drugs, medicaments and biological substances
CPT/HCPCS: 71275; 80053; 84484; 85025; 93005; 93970; 99283; Q9967

== ENCOUNTER 2020-12-03 23:41 | Emergency (ER) | payer OTHER, SELFPAY ==
[2020-12-03 23:42] VITALS: BP 134/63; PULSE 85; RESP 14; TEMP 36.6; O2SAT 97; BMI 24.5
--- NOTE | 2020-12-04 | PC.NURSE ---
after discussion about treatment pt decided to leave without seeing
[2020-12-04 00:02] VITALS: BP 134/63; PULSE 85; RESP 16; TEMP 36.7; O2SAT 98
== END 2020-12-04 00:04 | disposition left against medical advice (07) ==
LOC: ER 23:53
PROVIDERS: Emergency Provider Emergency Medicine; PCP Emergency Medicine
DX: Z53.21 Procedure and treatment not carried out due to patient leaving prior to being seen by health care provider (principal); M79.605 Pain in left leg
CPT/HCPCS: 99211

== ENCOUNTER → 2020-12-25 14:20 | Outpatient (CLI) | payer OTHER, SELFPAY ==
[2020-12-25 15:29] LABS: Free Thyroxine Index 3.2 ug/dL (5.93-13.13); Triiodothryronine (T3) Uptake 32 % (23.5-40.5)
[2020-12-25 15:43] LABS: Thyroid Stimulating Hormone 0.34 uIU/mL (0.465-4.68)
[2020-12-27 14:01] LABS: FSH 16.2 mIU/mL (.); LH 11.3 mIU/mL (.)
== END ==
PROVIDERS: Visit Provider Nurse Practitioner Obstetrics & Gynecology
DX: N95.1 Menopausal and female climacteric states (principal); Z79.899 Other long term (current) drug therapy
CPT/HCPCS: 36415; 82670; 83001; 83002; 84436; 84443; 84479

== ENCOUNTER 2021-01-31 23:08 | Emergency (ER) | payer OTHER, SELFPAY ==
[2021-01-31 23:18] VITALS: BP 103/69; PULSE 78; RESP 16; TEMP 36.8; O2SAT 100; BMI 20.9
--- NOTE | 2021-02-01 00:06 | HMH.EDUPEXT ---
ED Disposition Clinical Impression: Upper extremity pain Qualifiers: Laterality: left Qualified Code(s): M79.602 - Pain in left arm Disposition: Home, Self-Care Condition on Discharge: Good Instructions: DI for Bursitis Additional Instructions: see pcp for follow up Referrals: Ciro Kemp MD [Primary Care Provider] - - Critical Care Critical Care Time: No Attestation: On 01/31/21, the high probability of a clinically significant, sudden or life threatening deterioration of the following system(s) required my full and direct attention, intervention and personal management. The time I documented below is in addition to time spent performing reported procedures but includes the following listed in this critical care notation. Medical Decision Making - Medical Records Medical records reviewed: Yes: I reviewed the patient's medical records. - Narayan Inquiry Pt receiving controlled substance: No Vital Signs: 01/31/21 23:18 Temperature 98.2 F Temperature Source Oral Pulse Rate [Right] 78 Respiratory Rate 16 Blood Pressure [Right Arm] 103/69 L Blood Pressure Mean [Right Arm] 80 Blood Pressure Source [Right Arm] Automatic Cuff Blood Pressure Position [Right Arm] Sitting 02 Sat by Pulse Oximetry 100 Oxygen Delivery Method Room Air Orders (Tests/Meds): ORDERS Category Date Time Status XR shoulder LT min 2V Stat Exams 02/01/21 00:10 Ordered Medical Decision Narrative: denied meds as she has bursitis with radicular sx - Upper Extremity HPI - General Chief Complaint: Extremity Problem,Nontraumatic Stated Complaint: Left Arm and Shoulder Pain;Nausea Time Seen by Provider: 02/01/21 00:00 Mode of Arrival: Ambulatory Source of Information: Patient, Medical Record Limitations: No Limitations Description of Symptoms (Recalled from ER Triage Doc. by RN): Pt states she woke up about noon today and her left shoulder was hurting, pt denies any injury to area, shoulder more painfull with ROM. - History of Present Illness MD complaint: injury to: left, shoulder, arm Onset (ago): hour(s) Other Extremity Injury: Left: arm, shoulder Other injuries: none Handedness: right Place: home Severity: moderate Exacerbating factors: none Associated symptoms: denies other symptoms - Related Data Home Medications Medication Instructions Recorded Confirmed Ascorbic Acid [Vitamin C] 1,000 mg PO DAILY 11/23/20 12/11/20 Budesonide/Formoterol Fumarate 2 puffs PO BID 11/23/20 12/11/20 [Symbicort 160-4.5 Mcg Inhaler] Cholecalciferol (Vitamin D3) 400 unit PO DAILY 11/23/20 12/11/20 [Vitamin D-400] Ferrous Sulfate [Ferrous Sulfate 325 mg PO DAILY 11/23/20 12/11/20 325mg Tablet] Buspirone HCl [Buspar 5mg tablet] 5 mg PO BID 11/24/20 12/11/20 Ergocalciferol (Vitamin D2) 1 cap PO WEEKLY 11/24/20 12/11/20 [Drisdol 50,000 units (1.25mg) capsule] permethrin 5 % topical cream g TOPICAL 12/11/20 12/11/20 Previous Rx's Medication Instructions Recorded Oxycodone HCl/Acetaminophen 1 tab PO Q4-6H PRN #12 tab 11/26/20 [Percocet 5/325mg tablet] hydrOXYzine pamoate [Vistaril 25mg 25 mg PO Q8H PRN #90 cap 11/26/20 capsule] nitrofurantoin 100 mg PO BID 5 Days #10 cap 11/27/20 monohydrate/macrocrystals 100 mg capsule phenazopyridine 100 mg tablet 100 mg PO TID PRN 3 Days #9 tab 11/27/20 Allergies Allergy/AdvReac Type Severity Reaction Status Date / Time cefaclor [From Ceclor] Allergy Unknown Verified 12/11/20 14:53 allergy reaction ceftriaxone [From Rocephin] Allergy Unknown Verified 12/11/20 14:53 allergy reaction doxycycline Allergy Unknown Verified 12/11/20 14:53 allergy reaction hydrocodone [From Lortab] Allergy Unknown Verified 12/11/20 14:53 allergy reaction naproxen Allergy Rash Verified 12/11/20 14:53 Sulfa (Sulfonamide Allergy Hives Verified 12/11/20 14:53 Antibiotics) IV Contrast Allergy Uncoded 12/11/20 14:5
[2021-02-01 00:26] VITALS: BP 100/74; PULSE 79; RESP 16; TEMP 36.8; O2SAT 100
== END 2021-02-01 00:27 | disposition home or self-care (01) ==
PROVIDERS: Emergency Provider Emergency Medicine; PCP Emergency Medicine
DX: M79.602 Pain in left arm (principal); Z87.442 Personal history of urinary calculi; Z88.1 Allergy status to other antibiotic agents; Z88.2 Allergy status to sulfonamides; Z88.5 Allergy status to narcotic agent
CPT/HCPCS: 99281

== ENCOUNTER 2021-03-07 13:32 | Emergency (ER) | payer OTHER, SELFPAY ==
[2021-03-07 13:33] VITALS: BP 123/76; PULSE 78; RESP 16; TEMP 36.8; O2SAT 98; BMI 23.0
[2021-03-07 13:40] VITALS: BP 123/76; PULSE 80; O2SAT 100
[2021-03-07 13:57] LABS: Basophils % 0.6 % (0.1-2.0); Eosinophils # 0.3 K/mm3 (0.0-0.4); Eosinophils % 4.6 % (0.1-12.0); Hematocrit 39.8 % (37.0-47.0); Lymphocytes # 2.3 K/mm3 (0.7-4.5); Lymphocytes % 39.7 % (10-50); Mean Corpuscular HGB Conc 32.7 g/dL (31.8-35.4); Mean Corpuscular Hemoglobin 26.6 pg (27.0-31.2); Mean Corpuscular Volume 81.2 fl (81-99); Monocytes # 0.3 K/mm3 (0.1-1.0); Monocytes % 5.3 % (1.7-9.3); Neutrophils # 2.9 K/mm3 (1.8-7.8); Neutrophils % 49.9 % (37.0-80.0); Platelet Count 249 K/mm3 (142-424); Red Cell Distribution Width 14.8 % (11.5-17.5); White Blood Count 5.7 K/mm3 (4.8-10.8)
[2021-03-07 14:02] LABS: Chloride 104 mmol/L (98-107); Potassium 3.8 mmoL/L (3.5-5.1); Sodium 142 mmol/L (136-145)
[2021-03-07 14:05] LABS: Alanine Aminotransferase 15 U/L (12-78); Albumin Level 4.7 g/dl (3.5-5.0); Albumin/Globulin Ratio 1.6 (1.1-1.8); Alkaline Phosphatase 68 U/L (38-126); Anion Gap 14.8 mEq/L (5-15); Aspartate Amino Transferase 23 U/L (14-36); Bilirubin,Total 0.4 mg/dl (0.2-1.3); Blood Urea Nitrogen 9 mg/dl (7-17); Calcium 8.9 mg/dl (8.4-10.2); Carbon Dioxide 27 mmol/L (22.0-30.0); Creatinine Clearance Estimated 56 mL/min (50-200); Estimated Glomerular Filt Rate 53 ml/min (>60); GFR (African American) 64 ML/MIN (>60); Glucose 93 mg/dl (74-100); Total Protein,Serum 7.7 g/dl (6.3-8.2)
--- NOTE | 2021-03-07 14:08 | HMH.EDGENADL ---
ED Disposition Clinical Impression: Difficulty urinating, Flank pain Disposition: Home, Self-Care Condition on Discharge: Good Additional Instructions: Drink plenty of fluids. Follow-up with your primary care provider next week if symptoms persist. Referrals: Angie Matt [Primary Care Provider] - - Critical Care Critical Care Time: No Attestation: On 03/07/21, the high probability of a clinically significant, sudden or life threatening deterioration of the following system(s) required my full and direct attention, intervention and personal management. The time I documented below is in addition to time spent performing reported procedures but includes the following listed in this critical care notation. Medical Decision Making - Narayan Inquiry Pt receiving controlled substance: No Vital Signs: 03/07/21 13:33 03/07/21 13:40 Temperature 98.3 F Temperature Source Oral Pulse Rate 80 Pulse Rate [Radial] 78 Respiratory Rate 16 Blood Pressure 123/76 Blood Pressure [Right Arm] 123/76 Blood Pressure Mean 103 Blood Pressure Mean [Right Arm] 91 Blood Pressure Position [Right Arm] Sitting 02 Sat by Pulse Oximetry 98 100 Oxygen Delivery Method Room Air - Lab Data Lab Results 03/07/21 13:50: WBC 5.7, RBC 4.90, Hgb 13.0, Hct 39.8, MCV 81.2, MCH 26.6 L, MCHC 32.7, RDW 14.8, Plt Count 249, MPV 8.0, Neut % (Auto) 49.9, Lymph % (Auto) 39.7, [place] % (Auto) 5.3, Eos % (Auto) 4.6, Baso % (Auto) 0.6, Neut # (Auto) 2.9, Lymph # (Auto) 2.3, [place] # (Auto) 0.3, Eos # (Auto) 0.3, Baso # (Auto) 0.0 03/07/21 13:50: Sodium 142, Potassium 3.8, Chloride 104, Carbon Dioxide 27, Anion Gap 14.8, BUN 9, Creatinine 1.10 H, Estimated Creat Clear 56, Estimated GFR 53 L, Est GFR ( Amer) 64, Glucose 93, Calcium 8.9, Total Bilirubin 0.4, AST 23, ALT 15, Alkaline Phosphatase 68, Total Protein 7.7, Albumin 4.7, Globulin 3.0, Albumin/Globulin Ratio 1.6 03/07/21 13:50: Serum HCG, Qual Negative 03/07/21 13:50: Lipase 134 03/07/21 : Urine Color Yellow, Urine Appearance Clear, Urine pH 7.0, Ur Specific [place] 1.010, Urine Protein Negative, Urine Glucose (UA) Negative, Urine Ketones Negative, Urine Blood Negative, Urine Nitrate Negative, Urine Bilirubin Negative, Urine Urobilinogen 0.2, Ur Leukocyte Esterase 1+ A, Urine RBC None, Urine WBC None, Ur Squamous Epith Cells Occasional, Urine Bacteria None Result diagrams: 03/07/21 13:50 03/07/21 13:50 Orders (Tests/Meds): ED MEDICATIONS Discontinued Medications Generic Name Dose Route Start Last Admin Trade Name Freq PRN Reason Stop Dose Admin Sodium Chloride 1,000 mls @ 999 mls/hr 03/07/21 14:00 03/07/21 13:53 Sod Chlor 0.9% 1000ml Bag IV 03/07/21 15:00 999 mls/hr .Q1H1M MYA Administration Ondansetron HCl 4 mg 03/07/21 13:49 03/07/21 13:58 Ondansetron 4mg/2ml Vial IV 03/07/21 13:50 Not Given ONCE ONE ORDERS Category Date Time Status Urine Culture Stat Micro 03/07/21 Received - CT Data CT Scan: Abdomen, Pelvis Time Received: 15:[address] Reviewed: Yes: I have viewed the radiologist's interpretation Findings Narrative: PROCEDURE: CT ABDOMEN PELVIS WO CON CLINICAL INDICATION: L flank pain, r/o stone COMPARISON: No exams were available for comparison TECHNIQUE: Axial images obtained with sagittal and coronal reformats. All CT scans at the facility use one or more dose reduction, viz: automated exposure control, ma/kV adjustment per patient size (including targeted exams where dose is matched to indication, i.e. head), or iterative reconstruction technique. FINDINGS: LOWER THORAX: No acute finding ABDOMEN & PELVIS: There has been a prior cholecystectomy. No focal liver lesions are evident on the unenhanced exam. The spleen, adrenal glands, and pancreas have an unremarkable unenhanced appearance. No renal or ureteral calculi are evident. There is minimal prominence of the renal pelves on both sides. No ure
--- NOTE | 2021-03-07 14:14 | CT_ITS ---
PROCEDURE: CT ABDOMEN PELVIS WO CON CLINICAL INDICATION: L flank pain, r/o stone COMPARISON: No exams were available for comparison TECHNIQUE: Axial images obtained with sagittal and coronal reformats. All CT scans at the facility use one or more dose reduction, viz: automated exposure control, ma/kV adjustment per patient size (including targeted exams where dose is matched to indication, i.e. head), or iterative reconstruction technique. FINDINGS: LOWER THORAX: No acute finding ABDOMEN & PELVIS: There has been a prior cholecystectomy. No focal liver lesions are evident on the unenhanced exam. The spleen, adrenal glands, and pancreas have an unremarkable unenhanced appearance. No renal or ureteral calculi are evident. There is minimal prominence of the renal pelves on both sides. No ureteral dilatation. The urinary bladder is distended No intestinal obstruction or free air. No evidence of appendicitis there is a small amount fluid in the pelvis. Minimal lumbar curvature convex right. No acute bony anomalies. IMPRESSION: 1. There is mild distention of the urinary bladder. No renal or ureteral calculi are apparent. 2. Small amount pelvic fluid noted etiology undetermined possibly physiologic. No evidence of appendicitis Dictated by: Arun Ruvalcaba MD 03/07/2021 15:27 Arun Ruvalcaba MD in [place] 03/07/2021 15:27
[2021-03-07 14:30] VITALS: BP 122/68; PULSE 68; RESP 16; O2SAT 97
--- NOTE | 2021-03-07 14:31 | PC.NURSE ---
Pt gone to CT
[2021-03-07 14:32] LABS: HCG Qualitative, Serum Negative (Negative)
[2021-03-07 15:14] LABS: Microscopic, Urine URINE MICROSCOPIC (MICROSCOPIC)
[2021-03-07 15:16] LABS: Appearance,Urine CLEAR (Clear); Bilirubin,Urine Negative (Negative); Blood, Urine Negative (Negative); Color,Urine YELLOW (Yellow); Glucose,Urine (UA) Negative (Negative); Ketones,Urine Negative (Negative); Leukocyte Esterase,Urine 1+ (Negative); Nitrate,Urine Negative (Negative); Protein,Urine Negative (Negative); Urobilinogen,Urine 0.2 EU/dl (0.2)
[2021-03-07 15:30] VITALS: BP 119/65; PULSE 68; RESP 16; O2SAT 98
[2021-03-07 15:34] LABS: Squamous Epithelial Cell,Urine Occasional #/hpf (0-5)
[2021-03-07 15:45] LABS: Lipase 134 U/L (23-300)
[2021-03-07 16:09] VITALS: BP 115/64; PULSE 66; RESP 16; TEMP 36.6; O2SAT 97
== END 2021-03-07 16:10 | disposition home or self-care (01) ==
PROVIDERS: Emergency Provider Emergency Medicine; PCP Family Medicine
DX: R39.198 Other difficulties with micturition (principal); R10.12 Left upper quadrant pain
CPT/HCPCS: 74176; 80053; 81001; 83690; 84703; 85025; 87086; 96365; 99283; J2405

== ENCOUNTER → 2021-04-15 12:59 | Outpatient (CLI) | payer OTHER, SELFPAY ==
--- NOTE | 2021-04-15 13:00 | US_ITS ---
PROCEDURE: US TRANSVAGINAL CLINICAL INDICATION: pelvic pain COMPARISON: US US TRANSVAGINAL from 11/23/2020 FINDINGS: UTERUS: 9cm x x 5cm with a combined endometrial thickness of 12.3mm LEFT OVARY: 1cmm6hvd1.9cm with a volume of 7.1ml. RIGHT OVARY: [id number] with a volume of 3.3ml. There are numerous nabothian cysts. Along the posterior aspect of the body of the uterus there is a 2 cm fibroid previously measuring 3 x 2 cm. There is 18 x 17 mm cyst involving the left ovary previously measuring 25 mm. Minimal amount of cul-de-sac fluid IMPRESSION: 1. The endometrial thickness upper limits of normal not significantly changed. 2. Uterine fibroid which is measured slightly smaller compared to the previous exam. The difference in size could be related to the area measurement. 3. Left simple appearing ovarian cyst which is slightly smaller. Dictated by: Arun Ruvalcaba MD 04/15/2021 14:46 Arun Ruvalcaba MD in [facility] 04/15/2021 14:46
== END ==
PROVIDERS: PCP Emergency Medicine; Visit Provider Nurse Practitioner Obstetrics & Gynecology
DX: R10.2 Pelvic and perineal pain (principal)
CPT/HCPCS: 76830

== ENCOUNTER → 2021-04-18 14:13 | Outpatient (CLI) | payer OTHER, SELFPAY ==
[2021-04-20 08:38] LABS: HSV 2 IgG, Type Spec >23.60 index (0.00-0.90)
[2021-04-20 13:13] LABS: HIV Screen 4th Generation wRfx Non Reactive (Non Reactive); Hep A Ab, IgM Negative (Negative); Hepatitis B Core Antibody IgM Negative (Negative); Hepatitis B Surface Antigen Negative (Negative); Hepatitis C Antibody <0.1 s/co ratio (0.0-0.9)
[2021-04-22 07:07] LABS: Neisseria gonorrhoeae, NAA Negative (Negative)
== END ==
PROVIDERS: Visit Provider Nurse Practitioner Obstetrics & Gynecology
DX: Z72.51 High risk heterosexual behavior (principal); Z11.4 Encounter for screening for human immunodeficiency virus [HIV]
CPT/HCPCS: 36415; 80074; 86592; 86695; 86703; 86790; 87491; 87591; G0432

== ENCOUNTER → 2021-05-12 15:47 | Outpatient (CLI) | payer OTHER, SELFPAY ==
[2021-05-22 07:55] LABS: Treponema pallidum Antibodies NON REACTIVE
== END ==
PROVIDERS: Visit Provider Nurse Practitioner Obstetrics & Gynecology
DX: A53.0 Latent syphilis, unspecified as early or late (principal); Z72.51 High risk heterosexual behavior
CPT/HCPCS: 36415; 86780

== ENCOUNTER → 2021-06-04 16:16 | Outpatient (CLI) | payer OTHER, SELFPAY ==
[2021-06-06 08:30] LABS: Hep A Ab, IgM Negative (Negative); Hepatitis B Core Antibody IgM Negative (Negative); Hepatitis B Surface Antigen Negative (Negative); Hepatitis C Antibody <0.1 s/co ratio (0.0-0.9)
[2021-06-07 04:34] LABS: HSV 1 IgG, Type Spec <0.91 index (0.00-0.90); HSV 2 IgG, Type Spec >23.60 index (0.00-0.90)
== END ==
PROVIDERS: Visit Provider Nurse Practitioner Obstetrics & Gynecology
DX: Z72.51 High risk heterosexual behavior (principal)
CPT/HCPCS: 36415; 80074; 86592; 86695; 86703; 86790; G0432

== ENCOUNTER → 2021-06-04 17:24 | Outpatient (CLI) | payer OTHER, SELFPAY ==
[2021-06-07 01:41] LABS: Neisseria gonorrhoeae, NAA Negative (Negative)
== END ==
PROVIDERS: Visit Provider Nurse Practitioner Obstetrics & Gynecology
DX: Z72.51 High risk heterosexual behavior (principal)
CPT/HCPCS: 87491; 87591

== ENCOUNTER → 2022-03-05 10:16 | Outpatient (CLI) | payer OTHER, SELFPAY ==
[2022-03-06 23:11] LABS: Neisseria gonorrhoeae, NAA Negative (Negative)
== END ==
PROVIDERS: Visit Provider Nurse Practitioner Obstetrics & Gynecology
DX: Z72.51 High risk heterosexual behavior (principal)
CPT/HCPCS: 87491; 87591

== ENCOUNTER → 2022-03-09 09:59 | Outpatient (CLI) | payer OTHER, SELFPAY ==
[2022-03-09 10:16] LABS: Basophils # 0.1 K/mm3 (0-0.2); Basophils % 1.8 % (0.1-2.0); Eosinophils # 0.4 K/mm3 (0.0-0.4); Eosinophils % 6.9 % (0.1-12.0); Hematocrit 39.6 % (37.0-47.0); Hemoglobin 13.5 g/dL (12.2-16.2); Lymphocytes # 1.9 K/mm3 (0.7-4.5); Lymphocytes % 30.7 % (10-50); Mean Corpuscular Volume 91.2 fl (81-99); Mean Platelet Volume 8.1 fl (7.4-10.4); Monocytes # 0.3 K/mm3 (0.1-1.0); Monocytes % 5.3 % (1.7-9.3); Neutrophils # 3.4 K/mm3 (1.8-7.8); Neutrophils % 55.4 % (37.0-80.0); Platelet Count 261 K/mm3 (142-424); Red Blood Count 4.34 M/mm3 (4.20-5.40); White Blood Count 6.1 K/mm3 (4.8-10.8)
[2022-03-09 11:03] LABS: Chloride 104 mmol/L (98-107); Potassium 3.7 mmoL/L (3.5-5.1); Sodium 137 mmol/L (136-145)
[2022-03-09 11:05] LABS: HCG Qualitative, Serum Negative (Negative)
[2022-03-09 11:06] LABS: Anion Gap 10.7 mEq/L (5-15); Blood Urea Nitrogen 8 mg/dl (7-17); Calcium 8.8 mg/dl (8.4-10.2); Carbon Dioxide 26 mmol/L (22.0-30.0); Estimated Glomerular Filt Rate 106 ml/min (>60); GFR (African American) 129 ML/MIN (>60); Glucose 103 mg/dl (74-100)
== END ==
PROVIDERS: Visit Provider Nurse Practitioner Obstetrics & Gynecology
DX: N80.0 Endometriosis of uterus (principal); N94.10 Unspecified dyspareunia; N94.6 Dysmenorrhea, unspecified
CPT/HCPCS: 36415; 80048; 84703; 85025; C9803; U0003; U0005

== ENCOUNTER 2022-03-10 08:19 | Observation (INO) | payer OTHER, SELFPAY ==
[2022-03-06 12:48] VITALS: BMI 22.6
[2022-03-10] VITALS (25 sets, daily range): BP systolic 94–151; BP diastolic 54–92; PULSE 70–102; RESP 16–20; TEMP 36.4–43; O2SAT 96–100; BMI 23.6
--- NOTE | 2022-03-10 07:08 | HMH.ANESCL ---
[facility] Anesthesia Checklist - Patient Identification Patient Identification: Arm Band - Structural Data Admitted From: Home Planned Operative Procedure/s: [facility] Consent for Planned Operative Procedure(s) Verified: Yes - NPO Status Verified Time NPO: 00:00 - Additional verifications Anesthesia Reactions: No Hx Blood Transfusions: Yes (11/2020) Blood Transfusion Reaction: No - Airway Assessment C-Spine Mobility Assessed: Yes TMJ Mobility Assessed: Yes Dentition: Good Dentition - Neurological Assessment Level of Consciousness: Awake Hx Seizures: No Numbness or tingling in extremities: No - Anesthesia Plan Anesthesia Risk discussed: Yes Anesthesia Plan: Verified ASA Class: II Anesthesia Type: General [facility] History I have reviewed the patient's past medical history: Yes Medical History: Reports:: Anxiety, Chronic Obstructive Pulmonary Disease (COPD), Depression Denies:: Cancer, Diabetes Mellitus Type 1, Diabetes Mellitus Type 2, Internal Pacemaker, MRSA, Seizures *Have you ever received a pneumonia vaccine?: No *Have you received a flu vaccine this season?: No Other Medical History: Denies: Blood Transfusion Reaction Anesthesia experience/problems:: None Laterality Cases: Bilateral: Other Other Surgeries: Yes: Cholecystectomy, Tubal Ligation, Other. No: Pacemaker Amputation: No Fractures: No - *Social History Last grade of school completed: High school graduate Smoking Status: Former smoker Alcohol Intake: current Alcohol Intake Frequency:: holidays/special occasions only Substance Use Type: denies use *Occupational Status:: unemployed Housing: apartment Household Members: children *Travel in the last 8 weeks: None - Psychiatric History Pschychiatric History:: Reports:: Anxiety, Depression Family Hx:: No significant family history
--- NOTE | 2022-03-10 10:57 | P.PN_ITS ---
[facility] Anesthesia Record Part I Intake, IV Amount: 800 Estimated blood loss (mL): 150 Urine output (mL): 75 Blood Pressure: 131/74 SaO2: 97 Pulse Rate: 78 Respiratory Rate: 16 Temperature: 97.5 F Patient is:: Drowsy, Oral/Nasal airway Stable to PACU at:: 10:53
--- NOTE | 2022-03-10 11:20 | HMH.PHAVTE ---
[facility] Pharm[facility] VTE Monitoring - Patient Demographics Admission date: 03/10/22 Report Date: 03/10/22 Time: 11:20 Allergies/Adverse Reactions: Patient Allergies cefaclor [From Ceclor] Allergy (Verified 03/10/22 06:29) Unknown allergy reaction ceftriaxone [From Rocephin] Allergy (Verified 03/10/22 06:29) Unknown allergy reaction doxycycline Allergy (Verified 03/10/22 06:29) Unknown allergy reaction hydrocodone [From Lortab] Allergy (Verified 03/10/22 06:29) Unknown allergy reaction naproxen Allergy (Verified 03/10/22 06:29) Rash Sulfa (Sulfonamide Antibiotics) Allergy (Verified 03/10/22 06:29) Hives IV Contrast Allergy (Uncoded 03/04/22 15:01) Height: 1.55 m Weight: 54.431 kg - Prophylaxis VTE Prophylaxis Ordered?: Yes Types of VTE Prophylaxis: IPCS Thigh High Location of Applied Device: Bilateral Lower Extremeties
--- NOTE | 2022-03-10 11:33 | HMH.OPNOTE ---
Date of procedure: 03/10/22 Pre-op Diagnosis:: Pelvic pain, dyspareunia, dysmenorrhea, Post-op Diagnosis:: Pelvic pain, dysmenorrhea, dyspareunia, bilateral hydrosalpinx, left tube adhesions Procedure performed:: Laparoscopic-assisted vaginal hysterectomy, right salpingo-oophorectomy, left salpingectomy, lysis of left tubal adhesions Surgeon:: Rubio Delgado MD Hunter Trapper(s):: Dr. Rubio HEEL BRUSHER:: Mary Self Anesthesia: GETA Estimated blood loss (mL): 150 Clinical Note:: She is a 47-year-old lady who complains of severe pain all the time. She has pain with her periods and pain with intercourse. She also has generalized abdominal pain. Ultrasound was normal. After having discussed the risks and benefits we elected perform a laparoscopic-assisted vaginal hysterectomy, bilateral salpingectomy and right oophorectomy. We had also discussed removing her appendix if it looked abnormal. Operative findings:: She had a normal-appearing anteverted somewhat bulky uterus. Both ovaries appeared atrophic. Both fallopian tubes had significant hydrosalpinx. She has had a previous tubal ligation with Falope-Rings. The appendix appeared normal. The rest the pelvis appeared normal. There was no evidence of endometriosis. The upper abdomen appeared normal. Operative note:: She was taken to the operating room where general anesthesia was found be adequate. She was prepped and draped in normal sterile fashion in the semilithotomy position. A weighted speculum was placed in the vagina and the anterior lip of the cervix was grasped with a tenaculum. An acorn uterine manipulator was then placed within the cervical os. I then changed gloves. I injected 10 cc of 0.5% ropivacaine around the umbilicus and made a small incision within the umbilicus. I inserted a Veress needle into the abdominal cavity. The abdominal cavity was then insufflated with carbon dioxide gas to a pressure of 20 mmHg. I then inserted an 11 mm trocar under direct vision. I injected through and through the pubic hairline, made a small incision here and inserted a 5 mm trocar under direct vision. I identified the inferior epigastric arteries on the left side, went lateral to these and injected through and through. I then made a small incision and inserted an 11 mm trocar under direct vision. A similar 11 mm trocar was placed on the right side. The left tube was adherent to the left pelvic sidewall and I took this down with harmonic scalpel. The left round ligament was then grasped and cut through with harmonic scalpel. This was followed by opening up the peritoneum anteriorly to the midline. I then grasped the tube on the left side and cut through this. This is followed by cutting through the left utero-ovarian ligament. I used Harmonic scalpel on the coagulation mode. I then took down the posterior aspect of the broad ligament to the level of the uterosacral ligament. I then skeletonized the uterine arteries on the left side and placed hemoclips on these. Using the harmonic scalpel on coagulation mode adjacent to the cervix I then took down these uterine arteries. I then further freed up the bladder anteriorly and laterally on the left side. I then turned my attention to the right side where I grasped the right round ligament. The right tube was adherent to the right pelvic sidewall and using harmonic scalpel I was able to free this up. I then cut through the right round ligament. I then took down the anterior peritoneum to the midline joining up with the other side. I further dissected the bladder off. The posterior aspect of the right broad ligament was then taken down with harmonic scalpel. I skeletonized the uterine arteries on the right side. I applied hemoclips to the uterine arteries and staying adjacent to the cervix on the right side I took down the uterine arteries with harmonic scalpel on coagulation mode. I further freed up the bladder. We then assured hemost
--- NOTE | 2022-03-10 11:36 | PC.NURSE ---
Pt arrived to the floor at this time
--- NOTE | 2022-03-10 13:42 | PC.NURSE ---
1121-detailed report called to YASH Han 1128-pt transported to 2nd floor room 211 via hospital bed w/starla rails up and left in care of YASH Han with bed locked in lowest position, family at bedside, vss, pt stable
[2022-03-10 14:21] LABS: Microscopic,Cath URINE MICROSCOPIC (MICROSCOPIC)
[2022-03-10 14:28] LABS: Appearance,Urine/Cath CLEAR (Clear); Bilirubin,Cath Negative (Negative); Blood, Urine/Cath 1+ (Negative); Color,Urine/Cath YELLOW (Yellow); Glucose,Urine/Cath (UA) Negative (Negative); Ketones,Urine/Cath Negative (Negative); Leukocyte Esterase,Cath Negative (Negative); Nitrate,Cath Negative (Negative); Protein,Urine/Cath Negative (Negative); Specific Gravity, Urine/Cath >= 1.030 (1.005-1.030); Urobilinogen,Cath 0.2 EU/dl (0.2)
[2022-03-10 14:43] LABS: Coronavirus 19, PCR Not Detected (NotDetected); Influenza A, PCR Not Detected (NotDetected); Influenza B, PCR Not Detected (NotDetected)
[2022-03-10 14:54] LABS: Bacteria,Urine/Cath TRACE /lpf; WBC,Urine/Cath Occasional #/hpf (0-3)
--- NOTE | 2022-03-10 15:23 | PC.NURSE ---
[address] Delgado at the request of the pt. she states that the ortiz is causing her extreme discomfort and she wants it removed. pt also refuses any further ivf. Per Dr Delgado ok to dc ortiz at this time. MD prefers for pt to have ivf, and would like this explained to the pt. pt was approached with request from the md about having ivf infusing. pt agreed. when it was explained to the pt about having catheter removed, she states that she feels using the bedpan/bsc would cause her more pain. she declined to have the ortiz dc at this time.
[2022-03-10 16:18] LABS: Hematocrit 40.1 % (37.0-47.0); Hemoglobin 13.2 g/dL (12.2-16.2)
--- NOTE | 2022-03-10 19:28 | PC.NURSE ---
pt decided that she wanted to have her catheter removed. pt also stated at this time that she no longer wanted to receive iv fluids.
--- NOTE | 2022-03-10 20:05 | PC.NURSE ---
Pt refused her iv fluids and demanded that her iv in her hand be removed. SHe stated I have 2 and I want this one out. PT informed that if the other one is bad she would have to be stuck again. Pt stated I dont care. Pt stated My ortiz was removed 4 hrs ago and I still have not peed. Pt educated that if she has not voided she will have to have one replaced. Educated on risk of bladder injury, UTI, and other complications from not voiding. Pt voiced Nope I will not get it put back in. I will continue to try to pee. No bladder scanner avail. at this time.
--- NOTE | 2022-03-10 21:47 | PC.NURSE ---
Spoke with Pt regarding pain medication. Informed Pt that Per the She could have po medication or IV but not both at the same time. Pt stated the Dilaudid only made her sleep so she wanted to switch to the oxy at this time. Pt felt that the oxy was effective in controlling her pain. Pt still unable to void. Offered to call the for straight cath orders. Pt stated I want to continue to try on my own. Peppermint oil applied to a hat and placed in the BSC to assist with urinary retention. Not effective at this time.
[2022-03-11] VITALS (8 sets, daily range): BP systolic 103–132; BP diastolic 57–81; PULSE 60–83; RESP 14–21; TEMP 36.6–36.8; O2SAT 92–100
--- NOTE | 2022-03-11 05:33 | PC.NURSE ---
Straight Cath Pt again. able to get 800cc of clear yellow fluid at this time. Pt tolerated well. elevator service technician used.
[2022-03-11 06:21] LABS: Basophils # 0.1 K/mm3 (0-0.2); Basophils % 0.7 % (0.1-2.0); Eosinophils % 0.3 % (0.1-12.0); Hematocrit 40.5 % (37.0-47.0); Hemoglobin 13.3 g/dL (12.2-16.2); Lymphocytes # 2.3 K/mm3 (0.7-4.5); Lymphocytes % 19.1 % (10-50); Mean Corpuscular HGB Conc 32.8 g/dL (31.8-35.4); Mean Corpuscular Volume 91.6 fl (81-99); Mean Platelet Volume 7.5 fl (7.4-10.4); Monocytes # 0.8 K/mm3 (0.1-1.0); Monocytes % 6.7 % (1.7-9.3); Neutrophils # 8.7 K/mm3 (1.8-7.8); Neutrophils % 73.2 % (37.0-80.0); Platelet Count 257 K/mm3 (142-424); Red Blood Count 4.42 M/mm3 (4.20-5.40); Red Cell Distribution Width 13.1 % (11.5-17.5); White Blood Count 11.9 K/mm3 (4.8-10.8)
[2022-03-11 06:27] LABS: Chloride 103 mmol/L (98-107); Potassium 3.3 mmoL/L (3.5-5.1); Sodium 136 mmol/L (136-145)
[2022-03-11 06:30] LABS: Anion Gap 8.3 mEq/L (5-15); Blood Urea Nitrogen 6 mg/dl (7-17); Calcium 8.6 mg/dl (8.4-10.2); Carbon Dioxide 28 mmol/L (22.0-30.0); Creatinine Clearance Estimated 102 mL/min (50-200); Estimated Glomerular Filt Rate 106 ml/min (>60); GFR (African American) 129 ML/MIN (>60); Glucose 110 mg/dl (74-100)
--- NOTE | 2022-03-11 09:51 | P.PN_ITS ---
Internal Medicine - PN: Subj *Date: 03/11/22 *Time: 09:51 Interval history: She is doing well. She remains afebrile. Her pain is not well controlled yet. She has urinary retention and has been unable to void overnight. She has her catheter out and we have had to straight catheter twice. She would like to try Ativan to see if this helps with her urinary retention. Exam Vital signs and Labs for Last 24 Hours: Temp Pulse Resp BP Pulse Ox 98.2 F 60 17 103/60 L 100 03/11/22 07:41 03/11/22 07:41 03/11/22 07:41 03/11/22 07:41 03/11/22 07:41 Laboratory Results - last 24 hr 03/10/22 10:10: Urine Color Yellow, Urine Appearance Clear, Urine pH 6.0, Ur Specific [place] >= 1.030, Urine Protein Negative, Urine Glucose (UA) Negative, Urine Ketones Negative, Urine Blood 1+, Urine Nitrate Negative, Urine Bilirubin Negative, Urine Urobilinogen 0.2, Ur Leukocyte Esterase Negative, Urine RBC None, Urine WBC Occasional, Ur Squamous Epith Cells 3-5, Urine Bacteria Trace 03/10/22 14:39: SARS-CoV-2 (PCR) Not detected, Influenza A Untype (PCR) Not detected, Influenza Type B (PCR) Not detected 03/10/22 15:57: Hgb 13.2, Hct 40.1 03/11/22 05:39: WBC 11.9 H D, RBC 4.42, Hgb 13.3, Hct 40.5, MCV 91.6, MCH 30.0, MCHC 32.8, RDW 13.1, Plt Count 257, MPV 7.5, Neut % (Auto) 73.2, Lymph % (Auto) 19.1, [place] % (Auto) 6.7, Eos % (Auto) 0.3, Baso % (Auto) 0.7, Neut # (Auto) 8.7 H, Lymph # (Auto) 2.3, [place] # (Auto) 0.8, Eos # (Auto) 0.0, Baso # (Auto) 0.1 03/11/22 05:39: Sodium 136, Potassium 3.3 L, Chloride 103, Carbon Dioxide 28, Anion Gap 8.3, BUN 6 L, Creatinine 0.60, Estimated Creat Clear 102, Estimated GFR 106, Est GFR ( Amer) 129, Glucose 110 H, Calcium 8.6 I & O for Last 24 hours: Intake & Output 03/08/22 03/09/22 03/10/22 03/11/22 11:59 11:59 11:59 11:59 Intake Total 800 / 800 240 / 240 Output Total 1000 / 1000 Balance 800 / 800 -760 / -760 Weight 125 lb 3 oz - Constitutional no acute distress - *Routine HEENT Exam Head: Present: normocephalic Eye: Present: EOMI, PERRL ENT: Present: mucous membranes moist - *Routine Abdominal Exam Present: soft, normoactive bowel sounds. Absent: tenderness Comments: Her incisions are clean and dry. We will change her dressings out today. 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 She is stable. Her hemoglobin and blood counts are normal. We will go ahead and start Ativan 1 mg 3 times daily to see if this helps with her urinary retention. We may need to reinsert her Rosales catheter. We will see how she does throughout the day. Her pain is not well controlled enough yet to send her home. We will see how she does for the rest the day.
--- NOTE | 2022-03-11 09:54 | HMH.HP ---
*Admission Date: 03/10/22 *Chief complaint: Pelvic pain, dyspareunia *History of present illness: She is a 47-year-old lady who complains of severe pelvic pain. She has had multiple tests for STDs and these have been negative. She had an ultrasound that was essentially normal. She was exquisitely tender on examination in the office and as result of that she is offered laparoscopic-assisted vaginal hysterectomy. We also discussed removing her appendix at the time of surgery since she had chronic right-sided pain. She wanted to have her right ovary removed as well. [facility] History I have reviewed the patient's past medical history: Yes Medical History: Reports:: Anxiety, Chronic Obstructive Pulmonary Disease (COPD), Depression Denies:: Cancer, Diabetes Mellitus Type 1, Diabetes Mellitus Type 2, Internal Pacemaker, MRSA, Seizures *Have you ever received a pneumonia vaccine?: No *Have you received a flu vaccine this season?: No Other Medical History: Denies: Blood Transfusion Reaction Anesthesia experience/problems:: None Laterality Cases: Bilateral: Other Other Surgeries: Yes: Cholecystectomy, Tubal Ligation, Other. No: Pacemaker Amputation: No Fractures: No - *Social History Last grade of school completed: High school graduate Smoking Status: Former smoker Alcohol Intake: never Alcohol Intake Frequency:: holidays/special occasions only Substance Use Type: denies use *Occupational Status:: employed Housing: apartment Household Members: children *Travel in the last 8 weeks: None - Psychiatric History Pschychiatric History:: Reports:: Anxiety, Depression Family Hx:: No significant family history Para: 3 Review of Systems - Review of Systems Review of systems:: pertinent systems reviewed and negative unless documented below Meds Home Medications Medication Instructions Recorded Confirmed Type albuterol sulfate 90 mcg/actuation 1 puff IH QIDP PRN 03/11/21 03/10/22 History aerosol inhaler Oxycodone HCl/Acetaminophen 1 tab PO Q8HP PRN 03/10/22 03/10/22 History [Oxycodone-Acetaminophen 5-325] Allergies Allergy/AdvReac Type Severity Reaction Status Date / Time cefaclor [From Ceclor] Allergy Unknown Verified 03/10/22 06:29 allergy reaction ceftriaxone [From Rocephin] Allergy Unknown Verified 03/10/22 06:29 allergy reaction doxycycline Allergy Unknown Verified 03/10/22 06:29 allergy reaction hydrocodone [From Lortab] Allergy Unknown Verified 03/10/22 06:29 allergy reaction naproxen Allergy Rash Verified 03/10/22 06:29 Sulfa (Sulfonamide Allergy Hives Verified 03/10/22 06:29 Antibiotics) IV Contrast Allergy Uncoded 03/04/22 15:01 Exam Vital signs and Labs for Last 24 Hours: Temp Pulse Resp BP Pulse Ox 98.2 F 60 17 103/60 L 100 03/11/22 07:41 03/11/22 07:41 03/11/22 07:41 03/11/22 07:41 03/11/22 07:41 Laboratory Results - last 24 hr 03/10/22 10:10: Urine Color Yellow, Urine Appearance Clear, Urine pH 6.0, Ur Specific [place] >= 1.030, Urine Protein Negative, Urine Glucose (UA) Negative, Urine Ketones Negative, Urine Blood 1+, Urine Nitrate Negative, Urine Bilirubin Negative, Urine Urobilinogen 0.2, Ur Leukocyte Esterase Negative, Urine RBC None, Urine WBC Occasional, Ur Squamous Epith Cells 3-5, Urine Bacteria Trace 03/10/22 14:39: SARS-CoV-2 (PCR) Not detected, Influenza A Untype (PCR) Not detected, Influenza Type B (PCR) Not detected 03/10/22 15:57: Hgb 13.2, Hct 40.1 03/11/22 05:39: WBC 11.9 H D, RBC 4.42, Hgb 13.3, Hct 40.5, MCV 91.6, MCH 30.0, MCHC 32.8, RDW 13.1, Plt Count 257, MPV 7.5, Neut % (Auto) 73.2, Lymph % (Auto) 19.1, [place] % (Auto) 6.7, Eos % (Auto) 0.3, Baso % (Auto) 0.7, Neut # (Auto) 8.7 H, Lymph # (Auto) 2.3, [place] # (Auto) 0.8, Eos # (Auto) 0.0, Baso # (Auto) 0.1 03/11/22 05:39: Sodium 136, Potassium 3.3 L, Chloride 103, Carbon Dioxide 28, Anion Gap 8.3, BUN 6 L, Creatinine 0.60, Estimated Creat Clear 102, Estimated GFR 106, Est
--- NOTE | 2022-03-11 10:06 | P.PN_ITS ---
[facility] Anesthesia Record Part II Discharge Time: 11:23 Destination: Medical Surgical Department PACU nurse assessment reviewed?: Yes Patient Condition:: Good Anesthesia Complications:: None Swallowing reflex intact?: Yes Cyanosis?: No Blood Pressure: 132/81 Pulse Rate: 70 Temperature: 97.8 F Mental Status: Alert & Oriented Pain level:: 5 Nausea and/or vomitting:: None Intake, IV Amount: 0
--- NOTE | 2022-03-11 10:36 | PC.NURSE ---
rounded on patient. concerns with hemorrhoids, and being unable to urinate. educated on possible relief options. bulmaro bottle given to patient. broth given as requested. md rounded at this time as well and suggested keeping a ortiz in for a couple of days after discharge. primary rn giving pain medication as patient requested.
--- NOTE | 2022-03-11 20:18 | PC.NURSE ---
Patient requested to speak to superior to voice some complaints. Angela the charge nurse notified and came to speak to patient. Patient stated she had been yelling for over an hour for help and no one had come to help. Patient was rounded on during report and helped to bedside commode at 0730. Then the hardwood flooring specialist had rounded to do vitals and helped patient to bedside in bathroom and then back to bed. EMPLOYMENT SERVICES DIRECTOR came to other patient's room to notify myself that patient wanted pain medicine. After done with other patient's assessment and medications, pain medicine brought to patient. Patient requested to speak to superior to voice some complaints. Angela the charge nurse notified and came to speak to patient to resolve complaints. Dr. Mackey notified of patient's complaint of possible hemorrhoid. No hemorrhoid noted on exam and Dr. Delgado stated patient probably felt suture inside and swelling. Patient had not peed on own and had to be straight cathed during night. Dr. Delgado suggested we anchor ortiz with leg bag for patient to go home with and use ativan to help relax muscles to help induce urine. Patient refused all day to having catheter placed and stated she wanted to try ativan and sitz baths. Patient educated on risk of UTI and bladder rupture from full bladder withoput voiding. Patient still stated she wanted to wait and refused to have catheter.
[2022-03-12] VITALS: BP 112/64; PULSE 79; RESP 18; TEMP 36.7; O2SAT 96
--- NOTE | 2022-03-12 03:44 | PC.NURSE ---
Patient has rested well throughout the night. She c/o of pain at the beginning of the shift and hasn't called out since. Patient has been ambulating independently to the bathroom to use the bedside commode to urinate. She refused her IV fluids by stating she is drinking more water. Call light in place and working appropriately.
[2022-03-12 04:00] VITALS: BP 132/71; PULSE 76; RESP 20; TEMP 36.7; O2SAT 98
[2022-03-12 05:00] VITALS: BMI 25.6
[2022-03-12 08:00] VITALS: BP 110/68; PULSE 92; RESP 16; TEMP 36.7; O2SAT 100
--- NOTE | 2022-03-12 11:51 | HMH.DCSUM ---
General - General Admission date:: 03/10/22 Discharge date: 03/12/22 HPI HPI: She is a 47-year-old lady who complains of severe pelvic pain. She has had multiple tests for STDs and these have been negative. She had an ultrasound that was essentially normal. She was exquisitely tender on examination in the office and as result of that she is offered laparoscopic-assisted vaginal hysterectomy. We also discussed removing her appendix at the time of surgery since she had chronic right-sided pain. She wanted to have her right ovary removed as well. Hospital Course Hospital Course: She underwent a laparoscopically assisted vaginal hysterectomy and bilateral salpingectomy. She underwent a right oophorectomy. At the time of her surgery it was noted that she had bilateral hydrosalpinx. This certainly could account for her severe discomfort. There was no evidence of endometriosis. She has had prior history of right-sided pain and she wanted her right ovary removed. It had a small cyst on it but otherwise looked normal. The left ovary looks somewhat atrophic. Her appendix looked normal and she did not want this removed unless it looked abnormal. She has done reasonably well postoperatively and has remained afebrile throughout her hospitalization. Her blood work is normal. She did have some urinary retention and it took about 36 hours for her to void. She has been able to void. We had given her some Ativan to see if this would help. It seemed to help her. She is otherwise doing well. She had to have a straight catheter a couple of times post removal of her [place] catheter. She denies any shortness of breath or chest pain. She will be discharged home today to follow-up with me in approximately 2 weeks time. She was given the usual instructions with respect to limiting her activity, driving and sexual activity. She was given a prescription for Percocet 5/325 number 20 tablets, Ativan 1 mg 3 times daily as needed number 21 tablets. She was also given a prescription for MiraLAX. Her condition on discharge is stable and improved. Objective Vital signs: Temp Pulse Resp BP Pulse Ox 98.1 F 92 H 16 110/68 100 03/12/22 08:00 03/12/22 08:00 03/12/22 08:00 03/12/22 08:00 03/12/22 08:00 no acute distress - *Routine HEENT Exam Head: Present: normocephalic Eye: Present: EOMI, PERRL ENT: Present: mucous membranes moist - *Routine Neck Exam Present: supple - *Routine Respiratory Exam Present: CTA bilaterally - *Routine Cardiovascular Exam Present: RRR - *Routine Abdominal Exam Present: soft, normoactive bowel sounds. Absent: tenderness Comments: Incisions are clean and dry - *Routine Extremities Exam Absent: cyanosis, clubbing, edema - *Routine Skin Exam Present: warm. Absent: rash DS: Diagnosis - Discharge Diagnosis (1) Dysmenorrhea Status: Acute (2) Pelvic pain Status: Acute (3) Hydrosalpinx Status: Acute (4) Postoperative urinary retention Status: Acute Discharge Plan - Patient Discharge Instructions ACTIVITY: No heavy lifting DIET: continue same diet Patient Instructions: DI for Surgical Site Infection, Hysterectomy -- Laparoscopic Surgery, DI for Vaginal Hysterectomy, Catheter-associated Urinary Tract Infection - Follow up Plan Disposition: Home, Self-Care Condition at discharge:: Stable Home Medications: Home Medications Medication Instructions Recorded Confirmed Type albuterol sulfate 90 mcg/actuation 1 puff IH QIDP PRN 03/11/21 03/10/22 History aerosol inhaler LORazepam [Ativan 1mg tablet] 1 mg PO TID PRN #21 tab 03/12/22 Rx Oxycodone HCl/Acetaminophen 1 tab PO Q6HP PRN #20 tab 03/12/22 Rx [Oxycodone-Acetaminophen 5-325] polyethylene glycoL 3350 [Miralax 17 gm PO DAILY #517 gm 03/12/22 Rx Powder] Prescriptions/Medication Reconciliation: New LORazepam [Ativan 1mg tablet] 1 mg PO TID PRN #21 tab PRN Reaso
--- NOTE | 2022-03-12 12:50 | PC.NURSE ---
Attempting to contact Dr Delgado to complete med rec, unable to finalize dc med list at this time
--- NOTE | 2022-03-12 13:56 | PC.NURSE ---
Pt can't to be dc'd at this time. She told MD she would be unable to leave until around 1600 to which he was ok with
--- NOTE | 2022-03-12 16:07 | PC.NURSE ---
Pt still waiting on ride
--- NOTE | 2022-03-16 15:14 | CARE MANAGER ---
Contacted patient related to discharge from hospital. She states she is having back pain, abdominal pain, and pressure throughout the pelvic area. Encouraged patient to hang up with me and contact Dr. Delgado's office. She states she took the pain meds, but switched to tyelnol, but nothing was helping. Denies other questions and is going to call the doctor's office. YASH Kang
== END 2022-03-12 16:55 | disposition home or self-care (01) ==
LOC: OR 08:19 → 2ND 14:45
PROVIDERS: Admitting Provider Nurse Practitioner Obstetrics & Gynecology; PCP Physician Assistant Medical; Visit Provider Nurse Practitioner Obstetrics & Gynecology
PROC: 0UT9FZZ Resection of Uterus, Via Natural or Artificial Opening With Percutaneous Endoscopic Assistance (ICD-10-PCS; CPT 58552; principal; 2022-03-10 07:30)
DX: R10.2 Pelvic and perineal pain (principal); N70.11 Chronic salpingitis; N73.6 Female pelvic peritoneal adhesions (postinfective); R33.9 Retention of urine, unspecified
CPT/HCPCS: 58552; 36415; 80048; 81001; 84703; 85014; 85018; 85025; 96374; C9803; G0378; J0131; J1956; J2405; U0003; U0005

== ENCOUNTER → 2022-05-04 11:55 | Outpatient (CLI) | payer OTHER, SELFPAY ==
[2022-05-04 12:51] LABS: Basophils # 0.1 K/mm3 (0-0.2); Basophils % 0.8 % (0.1-2.0); Eosinophils # 0.3 K/mm3 (0.0-0.4); Eosinophils % 3.7 % (0.1-12.0); Hematocrit 41.8 % (37.0-47.0); Hemoglobin 13.1 g/dL (12.2-16.2); Lymphocytes # 1.7 K/mm3 (0.7-4.5); Lymphocytes % 22.4 % (10-50); Mean Corpuscular HGB Conc 31.4 g/dL (31.8-35.4); Mean Corpuscular Hemoglobin 30.1 pg (27.0-31.2); Mean Corpuscular Volume 95.8 fl (81-99); Mean Platelet Volume 8.1 fl (7.4-10.4); Monocytes # 0.4 K/mm3 (0.1-1.0); Monocytes % 4.6 % (1.7-9.3); Neutrophils # 5.2 K/mm3 (1.8-7.8); Neutrophils % 68.6 % (37.0-80.0); Platelet Count 315 K/mm3 (142-424); Red Blood Count 4.36 M/mm3 (4.20-5.40); Red Cell Distribution Width 13.3 % (11.5-17.5); White Blood Count 7.6 K/mm3 (4.8-10.8)
[2022-05-04 13:38] LABS: Free T4 (Free Thyroxine) 1.29 ng/dl (0.78-2.19)
[2022-05-04 13:51] LABS: Thyroid Stimulating Hormone 0.56 uIU/mL (0.465-4.68)
[2022-05-05 08:15] LABS: FSH 10.5 mIU/mL (.)
[2022-05-12 04:08] LABS: 1,25 Dihydroxy Vitamin D 52 pg/mL (.); 1,25-Dihydroxy, Vitamin D-2 <10 pg/mL (.); 1,25-Dihydroxy, Vitamin D-3 52 pg/mL (.)
== END ==
PROVIDERS: Visit Provider Nurse Practitioner Obstetrics & Gynecology
DX: N92.0 Excessive and frequent menstruation with regular cycle (principal); R53.83 Other fatigue
CPT/HCPCS: 36415; 82652; 83001; 83002; 84439; 84443; 85025